=== PATIENT | female | born 1935 | race Caucasian/White ===

== ENCOUNTER 2019-07-30 12:06 | Inpatient (IN) ==
[2019-07-30 12:32] LABS: POC Blood Urea Nitrogen 34 mg/dl (8-23); POC CO2 25 mmol/L (22-30); POC Calcium, Ionized 1.13 mmol/L (1.16-1.32); POC Chloride 99 mmol/L (96-108); POC Creatinine 2.4 mg/dl (0.6-1.1); POC Glucose, Random 119 mg/dL (70-105); POC Sodium 132 mmol/L (133-145)
--- NOTE | 2019-07-30 12:32 | Emergency Department Note ---
Neuro HPI - General Chief Complaint: Stroke Symptoms Stated Complaint: Neuro defecit Time Seen by Provider: 07/30/19 12:26 Source: patient, family Mode of arrival: ambulatory Limitations: no limitations - History of Present Illness HPI Narrative: History is obtained from the who states that she woke up this morning with a severe left-sided headache. Since then she's had intermittent episodes of confusion, talking gibberish, not making much sense. The. Recent does not have a focal neurologic deficit i.e. weakness, but she still complaining of headache, no history of nausea, vomiting, denies chest pain, follows commands but she's not able to make much sense with any conversation or question. The. Patient is repeatedly mumbling incomprehensible words and sometimes word salad. - Related Data Home Medications: Home Medications Medication Instructions Recorded Confirmed acyclovir 5 % topical cream 1 applic TOPICAL QDAY PRN 4 Days g 02/18/15 07/30/19 calcium carbonate 500 mg calcium 500 mg PO BID tab 02/18/15 05/24/17 (1,250 mg) tablet cholecalciferol (vitamin D3) 400 400 unit PO BID cap 02/18/15 05/24/17 unit capsule coenzyme Q10 200 mg capsule 200 mg PO QDAY cap 02/18/15 05/24/17 conjugated estrogens 0.625 mg/gram 0.5 g VAGINAL QDAY PRN g 02/18/15 05/24/17 vaginal cream halobetasol propionate 0.05 % 1 applic TOPICAL QDAY PRN g 02/18/15 05/24/17 topical ointment oxygen-air delivery systems See Dose Instructions .ROUTE 02/18/15 05/24/17 .MEDSUPPLY folic acid 1 mg tablet 1 mg PO QDAY tab 05/18/15 05/24/17 Bisoprolol Fumarate 2.5 mg PO HS 07/30/19 07/30/19 Diltiazem HCl [Dilt-Xr] 360 mg PO QDAY 07/30/19 07/30/19 Spironolactone [Aldactone] 12.5 mg PO DAILY 07/30/19 07/30/19 predniSONE [Prednisone] 30 mg PO QAM 07/30/19 07/30/19 traMADol HCL [Ultram] 100 mg PO DAILY 07/30/19 07/30/19 Previous Rx's Medication Instructions Recorded ipratropium-albuterol 0.5 mg-3 3 ml INHALATION TID 30 Days #270 ml 08/19/15 mg(2.5 mg base)/3 mL nebulization soln Probiotic 3 billion cell capsule 3,000 mmu cells PO QDAY #10 cap NS 10/08/15 oxycodone-acetaminophen 5 mg-325 See Dose Instructions PO TID PRN 10/22/15 mg tablet 25 Days #150 tab albuterol sulfate 90 mcg/actuation 1 puff INHALATION QID #18 g 10/26/15 aerosol inhaler digoxin 125 mcg (0.125 mg) tablet 125 mcg PO QDAY 90 Days #90 tab 07/04/16 levothyroxine 75 mcg tablet 75 mcg PO QDAY 90 Days #90 tab 02/20/17 clobetasol 0.05 % topical cream 1 applic TOPICAL BID PRN #15 g 03/22/17 tramadol 100 mg tablet,extended 100 mg PO QDAY #30 tab 04/25/17 release 24 hr warfarin 1 mg tablet See Rx Instructions .ROUTE 06/14/17 .COMPLEX #180 tab oxyCODONE HCL [Oxycodone HCl] 5 mg PO Q6HP PRN #20 tab 06/07/19 Allergies/Adverse Reactions: Allergies Allergy/AdvReac Type Severity Reaction Status Date / Time hydrocodone Allergy Severe Itching Verified 07/30/19 12:10 Amoxicillin [From Augmentin] Allergy Unknown Other Verified 07/30/19 12:10 atorvastatin [From Lipitor] Allergy Unknown Other Verified 07/30/19 12:10 bupropion [From Wellbutrin] Allergy Unknown Other Verified 07/30/19 12:10 clavulanic acid Allergy Unknown Other Verified 07/30/19 12:10 [From Augmentin] nicotine [From Nicoderm CQ] Allergy Unknown Other Verified 07/30/19 12:10 NSAIDS (Non-Steroidal Allergy Unknown Other Verified 07/30/19 12:10 Anti-Inflamma piperacillin [From Zosyn] Allergy Unknown Hives Verified 07/30/19 12:10 rosuvastatin [From Crestor] Allergy Unknown Other Verified 07/30/19 12:10 Ofiuewr-Stu-Gth Reductase Allergy Unknown Unknown Verified 07/30/19 12:10 Inhibitor tazobactam [From Zosyn] Allergy Unknown Hives Verified 12/10/19 12:10 Review of Systems Review of Systems: According to the , there is no history of any fall or head trauma Limitations: ROS unobtainable due to patients medical condition Past Medical History - Past Medical History Medical history: Reports: arthritis, COPD, GERD, hypertension 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 Absent: nystagmus, periorbital swelling ENT: Present: normal exam, normal oropharynx, mucous membranes moist, TM's normal bilaterally Neck: Present: full ROM, trachea midline. Absent: tenderness, meningismus Chest: Present: normal inspection, symmetric chest wall rise Respiratory: Present: wheezes, decreased breath sounds Cardiovascular: Present: regular rate, normal heart sounds Abdominal: Present: soft, normal bowel sounds. Absent: tenderness Extremities: Present: normal inspection, full ROM. Absent: pretibial edema, joint swelling Back: Absent: CVA tenderness (R), CVA tenderness (L), vertebral tenderness Neurological: Present: alert. Absent: motor sensory deficit Psychiatric: Present: anxious Skin: Present: warm, dry, normal color Course - Reevaluation(s) Reevaluation #1: Speech is somewhat improved at this time. He still confused about her daughter's whereabouts, she occasionally answers questions appropriately, at other times her speech and her word selection is inappropriate. She cannot remember where her daughter lives. Denies headache at this time. Head CT not showing any acute intracranial hemorrhage, her white count is elevated, she was hypoxic several times in the room. She still audibly wheezy after one breathing treatment of. We will start her on Solu-Medrol, according to her . She still smokes 1 pack a day despite multiple surgeries for vascular disease. Reevaluation #2: Rectal temperature was 101.6. At this point, we will draw blood cultures, start her on antibiotics. The. She may have pneumonia as the source of confusion, head CT was negative for acute intracranial hemorrhage. She does have severe encephalomalacia. Reevaluation #3: Her symptoms did actually improve in the ED of. We did give her 20 mg IV of labetalol and her blood pressure was reasonable between 150 and 170 systolic, confusion was somewhat improving, however, notably when we checked a rectal temperature was 101.6. I spoke with Dr. Forbes, who recommended daily starting on antibiotics for pneumonia, also covering for possibility of meningitis. The. He does not have meningitis-like symptoms except for episode of confusion associated with fever. His may very well be from pneumonia, certainly she does have an infiltrate right perihilar region that would explain the fever and c ertainly in the setting of encephalomalacia as well as hypertension and fever, she could have confusion from that. Unlikely that she has meningitis. However, we will cover her for that. In the meantime. We'll discuss possibility of spinal tap with Dr. Burrell. I do not feel this to be undertaken at this time as her INR still high at 2.7. Dr. Forbes stated that this could be done tomorrow as well. Vital Signs Temperature 99.4 F H 07/30/19 12:06 Pulse Rate 110 H 07/30/19 12:06 Respiratory Rate 25 H 07/30/19 12:06 Blood Pressure 207/109 07/30/19 12:06 Pulse Oximetry (%) 93 07/30/19 12:06 Temperature 101.7 F H 07/30/19 14:36 Pulse Rate 82 07/30/19 14:16 Respiratory Rate 18 07/30/19 14:16 Blood Pressure 159/75 07/30/19 14:16 Pulse Oximetry (%) 94 07/30/19 14:16 Neuro Symptoms/Deficit - MDM Narrative Medical decision making narrative: Final diagnosis is #1. Pneumonia and #2. COPD exacerbation. Episode of conf usion associated with hypertension, malignant and encephalomalacia. - Lab Data Lab results reviewed: Yes I reviewed the patient's lab results. Result diagrams: 07/30/19 12:28 07/30/19 12:27 Lab Results 07/30/19 07/30/19 07/30/19 Range/Units 12:27 12:27 12:28 WBC 14.7 H (4.5-11.0) K/mcL RBC 4.55 (4.00-5.20) M/mcL Hgb 11.6 L (12.0-15.0) g/dL Hct 37.3 (36.0-48.0) % POC Hct 38.0 (36.0-48.0) % MCV 81.9 (80.0-100.0) fL MCH 25.4 L (26.0-34.0) pg MCHC 31.0 (31.0-36.0) g/dL RDW 19.4 H (11.5-14.5) % Plt Count 404 (140-440) K/mcL MPV 6.8 L (7.4-10.4) fL Gran % 70.9 (38.0-78.0) % Lymph % (Auto) 16.5 (15.5-49.0) % [place] % (Auto) 6.6 (1.0-12.0) % Eos % (Auto) 5.3 (0.0-7.0) % Baso % (Auto) 0.7 (0.0-2.0) % Gran # 10.4 H (1.8-8.0) K/mcL Lymph # (Auto) 2.4 (1.5-4.8) K/mcL [place] # (Auto) 1.0 H (0.1-0.9) K/mcL Eos # (Auto) 0.8 H (0.0-0.7) K/mcL Baso # (Auto) 0.1 (0.0-0.3) K/mcL POC PT (11.9-14.5) sec POC INR (0.9-1.2) APTT (20-37) sec POC Sodium 132 L (133-145) mmol/L Sodium 132 L (133-145) mmol/L POC Potassium 5.0 (3.3-5.1) mmol/L Potassium 5.1 (3.3-5.1) mmol/L POC Chloride 99 (96-108) mmol/L Chloride 97 (96-108) mmol/L Carbon Dioxide 23 (22-30) mmol/L POC Total CO2 25 (22-30) mmol/L Anion Gap 12.0 (8-16) POC BUN 34 H (8-23) mg/dl BUN 35 H (8-23) mg/dl Creatinine 2.2 H (0.6-1.1) mg/dl POC Creatinine 2.4 H (0.6-1.1) mg/dl GFR Calculation 20 Glucose 121 H (70-105) mg/dL POC Glucose 119 H (70-105) mg/dL Calcium 9.4 (8.6-10.4) mg/dl POC WB Ioniz Calcium 1.13 L (1.16-1.32) mmol/L Total Bilirubin 0.2 (0.0-1.0) mg/dL AST 38 H (0-37) U/l ALT 42 H (0-40) U/l Alkaline Phosphatase 163 H (39-117) U/L Troponin T (0-0.03) ng/ml C-Reactive Protein 1.1 H (0.0-0.8) mg/dl Total Protein 6.9 (5.9-8.4) gm/dL Albumin 4.0 (3.2-5.2) gm/dL Globulin 2.9 (2.2-3.7) gm/dL Albumin/Globulin Ratio 1.4 (1.0-2.3) 07/30/19 07/30/19 Range/Units 12:28 12:28 WBC (4.5-11.0) K/mcL RBC (4.00-5.20) M/mcL Hgb (12.0-15.0) g/dL Hct (36.0-48.0) % POC Hct (36.0-48.0) % MCV (80.0-100.0) fL MCH (26.0-34.0) pg MCHC (31.0-36.0) g/dL RDW (11.5-14.5) % Plt Count (140-440) K/mcL MPV (7.4-10.4) fL Gran % (38.0-78.0) % Lymph % (Auto) (15.5-49.0) % [place] % (Auto) (1.0-12.0) % Eos % (Auto) (0.0-7.0) % Baso % (Auto) (0.0-2.0) % Gran # (1.8-8.0) K/mcL Lymph # (Auto) (1.5-4.8) K/mcL [place] # (Auto) (0.1-0.9) K/mcL Eos # (Auto) (0.0-0.7) K/mcL Baso # (Auto) (0.0-0.3) K/mcL POC PT 30.5 H (11.9-14.5) sec POC INR 2.7 H (0.9-1.2) APTT 59 H (20-37) sec POC Sodium (133-145) mmol/L Sodium (133-145) mmol/L POC Potassium (3.3-5.1) mmol/L Potassium (3.3-5.1) mmol/L POC Chloride (96-108) mmol/L Chloride (96-108) mmol/L Carbon Dioxide (22-30) mmol/L POC Total CO2 (22-30) mmol/L Anion Gap (8-16) POC BUN (8-23) mg/dl BUN (8-23) mg/dl Creatinine (0.6-1.1) mg/dl POC Creatinine (0.6-1.1) mg/dl GFR Calculation Glucose (70-105) mg/dL POC Glucose (70-105) mg/dL Calcium (8.6-10.4) mg/dl POC WB Ioniz Calcium (1.16-1.32) mmol/L Total Bilirubin (0.0-1.0) mg/dL AST (0-37) U/l ALT (0-40) U/l Alkaline Phosphatase (39-117) U/L Troponin T < 0.01 (0-0.03) ng/ml C-Reactive Protein (0.0-0.8) mg/dl Total Protein (5.9-8.4) gm/dL Albumin (3.2-5.2) gm/dL Globulin (2.2-3.7) gm/dL Albumin/Globulin Ratio (1.0-2.3) - Radiology Data Radiology results reviewed: Yes I reviewed the patient's radiology results. Disposition Pt seen by FOOD AND BEVERAGE CONTROLLER/PA only: No Clinical Impression: Pneumonia Disposition: Xfer As Inpt ([facility]) Referrals: Raul Orozco MD [Primary Care Provider] -
--- NOTE | 2019-07-30 12:42 | Cat Scan Report ---
CLINICAL INFORMATION: Code stroke COMPARISON: Previous examination dated 07/25/2017 TECHNIQUE: Axial noncontrast-enhanced images through the brain. Sagittally and coronally reformatted images. FINDINGS: No acute intracranial hemorrhage. There is no subdural hematoma. No subarachnoid hemorrhage. No intra-axial hemorrhage. There is severe white matter abnormality within both cerebral hemispheres. Appearance is consistent with small vessel ischemic change in this 84-year-old patient. No localized mass effect. No midline shift. No acute or focal intra-axial abnormality. Brainstem and cerebellum are negative. Basilar cisterns are normal. No calvarial fracture. No lytic lesion there is soft tissue density within mastoid air cells consistent with inflammatory mastoiditis. No significant bone destruction. IMPRESSION: 1. Severe white matter abnormality consistent with small vessel ischemic change. No interval change 2. No acute intracranial hemorrhage 3. Mild mastoiditis The exam was performed using radiation dose optimization techniques including, but not limited to, automated exposure control, adjustment of the mA and/or kV according to patient size and use of iterative reconstruction technique. Interpreted and Authenticated by: Stephen Burrell 07/30/19
[2019-07-30 12:44] LABS: POC INR 2.7 (0.9-1.2); POC Pro Time 30.5 sec (11.9-14.5)
[2019-07-30] MEDS ORDERED: LACTATED RINGERS 1,000 ML IV SCH (12:45)
[2019-07-30] MEDS ORDERED: LABETALOL 5 MG/ML ML IV ONE (12:48)
[2019-07-30] MEDS ORDERED: IPRATROPIUM/ALBUTEROL 3 ML AMPUL.NEB NEB ONE (12:49)
[2019-07-30 13:00] LABS: Basophils # (Auto) 0.1 K/mcL (0.0-0.3); Basophils % (Auto) 0.7 % (0.0-2.0); Eosinophils # (Auto) 0.8 K/mcL (0.0-0.7); Eosinophils % (Auto) 5.3 % (0.0-7.0); Granulocytes % (Auto) 70.9 % (38.0-78.0); Hematocrit 37.3 % (36.0-48.0); Hemoglobin 11.6 g/dL (12.0-15.0); Lymphocytes # (Auto) 2.4 K/mcL (1.5-4.8); Lymphocytes % (Auto) 16.5 % (15.5-49.0); Mean Cell Volume 81.9 fL (80.0-100.0); Mean Platelet Volume 6.8 fL (7.4-10.4); Monocytes % (Auto) 6.6 % (1.0-12.0); Platelet Count 404 K/mcL (140-440); RBC 4.55 M/mcL (4.00-5.20); Red Cell Distribution Width 19.4 % (11.5-14.5); WBC 14.7 K/mcL (4.5-11.0)
[2019-07-30 13:18] LABS: ALT/SGPT 42 U/l (0-40); AST/SGOT 38 U/l (0-37); Albumin/Globulin Ratio 1.4 (1.0-2.3); Alkaline Phosphatase 163 U/L (39-117); Bilirubin,Total 0.2 mg/dL (0.0-1.0); Blood Urea Nitrogen 35 mg/dl (8-23); Calcium 9.4 mg/dl (8.6-10.4); Carbon Dioxide 23 mmol/L (22-30); Chloride 97 mmol/L (96-108); Globulin 2.9 gm/dL (2.2-3.7); Glomerular Filtration Rate 20; Glucose 121 mg/dL (70-105)
--- NOTE | 2019-07-30 13:26 | XRay Report ---
CLINICAL INFORMATION:Confusion. COPD TECHNIQUE: AP portable semiupright chest x-ray COMPARISON: Previous chest x-rays dated 01/20/2017, 12/07/2015, 10/06/2014 FINDINGS:Diaphragms are flattened consistent with COPD. Mild cardiomegaly. There is mild peribronchial thickening. There is thickening of the interlobular septa consistent with interstitial edema. No focal pulmonary parenchymal consolidation. No evidence for significant pleural effusion. IMPRESSION: 1. Mild cardiomegaly 2. Findings consistent with interstitial pulmonary edema 3. No focal infiltrate Interpreted and Authenticated by: Stephen Burrell 07/30/19
[2019-07-30] MEDS ORDERED: methylPREDNISolone SOD SUCC 125 MG/2 ML VIAL IV ONE (14:12)
[2019-07-30] MEDS ORDERED: cefTRIAXone 1 GM VIAL IV ONE (14:33)
[2019-07-30] MEDS ORDERED: ACETAMINOPHEN 325 MG TABLET PO ONE (14:33)
[2019-07-30] MEDS ORDERED: LEVOFLOXACIN 500 MG/100 ML BAG IV ONE (14:34)
[2019-07-30] MEDS ORDERED: IPRATROPIUM/ALBUTEROL 3 ML AMPUL.NEB NEB SCH (15:00)
[2019-07-30] MEDS ORDERED: ACYCLOVIR SODIUM 500 MG VIAL IV STA (15:28)
[2019-07-30] MEDS ORDERED: VANCOMYCIN 1,500 MG in 0.9 % SODIUM CHLORIDE 500 ML IV ONE (15:30)
--- NOTE | 2019-07-30 15:37 | Internal Med History&Physical ---
Medical - H&P: HPI Patient information: Note initiated : 07/30/19 at 3:33 pm Service Date, if different from initiated Date: [] Patient: Leah Hong a 84 y/o F admitted on for Neuro defecit. Chief Complaint: [] Chief complaint: Headache confusion weakness and shortness of breath History of present illness: Ms. 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 She also noted worsening confusion along with left-sided headache that started abruptly this morning. Symptoms persisted for a few hours and was associated with a fever of 101.8. She denies experiencing associated photophobia. She is hard of hearing. Most of the history was obtained from patient's . Initial work-up was consistent with acute pulmonary edema/chest infiltrates and sepsis with a white count 14.7 and creatinine 2.2. Hospitalist service was consulted in light of severe sepsis/acute renal failure and high probability encephalitis in the setting of fever and mental status change. LP could not performed due to elevated INR. Patient was empirically started on Rocephin/vancomycin/acyclovir given a history of herpes. At the time of my evaluation patient denies associated chest pain, diarrhea, dysuria or bloody stool. She endorses to weight loss. She is very hard of hearing and is extremely distressed sitting up on bed labored unable to talk in full sentences. Review of systems A 10 point review system was performed and is negative except for discussed above Medical - H&P: PMH Medical history: Impaired glucose tolerance (Chronic) Encounter for Health Maintenance Examination in Adult (Chronic) Bronchitis (Acute) TIA (transient ischemic attack) (Chronic 12/05/14) Tobacco use (Chronic) Discontinuation of tobacco 07/2012 with component of moderately severe COPD, transient O2 use, continues nebulizer; secondary erythrocytosis, improving and she was congratulated in this regard; recent chest stable as regards to pulmonary nodules. Plan to rescreen on a yearly basis. Pulmonary nodule (Acute) Recent chest stable. Plan to rescreen on a yearly basis. Immunization up to date and discontinued tobacco 07/2012. Psoriasis (Chronic) Ultravate cream. Peripheral vascular disease (Chronic) Endarterectomy, right and left in 2005; last [place] review in 05/2010. Updated carotid doppler in 2009; negative previous aortic US 08/2011; right graft occulusion, now relegated to chronic Coumadin anticoagulation. Paroxysmal supraventricular tachycardia (Chronic) Normal cardiolite 08/2009. Osteopenia (Acute) Bone density 07/2010 T-score -1.2 spine and hip -3.3 with osteopenia at the spine. Declines further rescreening. Osteoarthrosis (Acute) At the hip on bone density 07/2010 T-score at the spine -1.2 and hip -3.3. Declines further medication addition and rescreening. Hypothyroidism (Chronic) Initiation of replacement. Hyperlipidemia (Chronic) Currently on medication. Hepatitis B infection (Acute) Positive hep B surface antibody around 2009 with no previous immunization, negative C antibody. Fibrocystic disease of breast (Acute) Previous reduction mammoplasty in 1996; exam stable. Questionable nodule on chest CT on the left lateral breast. S/P complete hysterectomy. Erythrocytosis (Chronic) Secondary to COPD, improving. Dyspepsia (Chronic) Stable on Prilosec; biliary sludge on previous upper GI workup; currently stable and under observation. Depression (Chronic) Chronic depression with the addition of situational. Currently taking medication. Degenerative arthritis (Chronic) Multi-joint; analgesics Colon polyps (Acute) 08/25/2015-Two tubular adenomas-Dr Daniel Colonoscopy 08/2009 showing adenomatous polyps, on 5 year sequencing. COPD (chronic obstructive pulmonary disease) (Chronic) Moderately severe, transient use of O2, continues nebulizer. Carotid stenosis (Acute 12/01/14) Back pain (Chronic) Chronic back pain; analgesics. S/P lumbar diskectomy [id number]. Arterial embolism and thrombosis of lower extremity (Acute 09/05/13) Aortic sclerosis (Acute 05/16/14) Antritis (stomach) (Acute) Stable on Prilosec; biliary sludge on previous upper GI workup. Under observation. residential current use of anticoagulant therapy (Chronic 09/05/13) Surgical History History of reduction mammoplasty (Acute) 1996 History of oophorectomy (Acute) History of hysterectomy (Acute) Status post femoral-popliteal bypass surgery (Acute 05/23/14) History of endarterectomy (Acute 05/23/14) 05/23/14-admitted on 05/23/14 for a left femoral endarterectomy at [facility] Dr Hurley Right 10/2005 and left 08/2005. Left repeated 02/2006 after occuded graft on the right in 07/2006 and has been relegated to Coumadin anticoagulation. History of esophagogastroduodenoscopy (Acute 11/04/09) Through Dr. Pyle. Revealed antritis. History of colonoscopy (Acute 09/07/09) 08/25/2015-Two tubular adenomas-Dr Daniel Showed 2 tubular adenomatous polyps. 5 year sequencing History of breast biopsy (Acute) X2 History of back surgery (Acute) 2001 & 2002 - X2 lumbar discectomy History of appendectomy (Acute) Family History Uncle Malignant neoplasm of lung Uncle Lymphoma Had some type of lymphoma Social History household members: spouse housing: house marital status: occupational status: retired smoking status: Current every day smoker tobacco type: cigarettes alcohol intake frequency: a few times a week substance use type: does not use Medical - H&P: Meds Home Medications Medication Instructions Recorded Confirmed Type ipratropium-albuterol 0.5 mg-3 3 ml INHALATION TID 30 Days #270 ml 08/19/15 07/30/19 Rx mg(2.5 mg base)/3 mL nebulization soln albuterol sulfate 90 mcg/actuation 1 puff INHALATION QID #18 g 10/26/15 07/30/19 Rx aerosol inhaler digoxin 125 mcg (0.125 mg) tablet 125 mcg PO QDAY 90 Days #90 tab 07/04/16 07/30/19 Rx levothyroxine 75 mcg tablet 75 mcg PO QDAY 90 Days #90 tab 02/20/17 07/30/19 Rx warfarin 1 mg tablet See Rx Instructions .ROUTE 06/14/17 07/30/19 Rx .COMPLEX #180 tab Bisoprolol Fumarate 2.5 mg PO HS 07/30/19 07/30/19 History Diltiazem HCl [Dilt-Xr] 360 mg PO QDAY 07/30/19 07/30/19 History Irbesartan [Avapro] 300 mg PO DAILY 07/30/19 07/30/19 History Metoprolol Succinate [[place] 25 mg PO BID 07/30/19 07/30/19 History Sprinkle] Pravastatin [Pravachol] 40 mg PO HS 07/30/19 07/30/19 History Spironolactone [Aldactone] 12.5 mg PO DAILY 07/30/19 07/30/19 History Terazosin [Hytrin] 1 mg PO HS 07/30/19 07/30/19 History oxyCODONE HCL [Roxicodone] 5 mg PO Q6HP PRN 07/30/19 07/30/19 History traMADol HCL [Ultram] 100 mg PO DAILY 07/30/19 07/30/19 History Allergies Allergy/AdvReac Type Severity Reaction Status Date / Time hydrocodone Allergy Severe Itching Verified 07/30/19 12:10 Amoxicillin [From Augmentin] Allergy Unknown Other Verified 07/30/19 12:10 atorvastatin [From Lipitor] Allergy Unknown Other Verified 07/30/19 12:10 bupropion [From Wellbutrin] Allergy Unknown Other Verified 07/30/19 12:10 clavulanic acid Allergy Unknown Other Verified 07/30/19 12:10 [From Augmentin] nicotine [From Nicoderm CQ] Allergy Unknown Other Verified 07/30/19 12:10 NSAIDS (Non-Steroidal Allergy Unknown Other Verified 07/30/19 12:10 Anti-Inflamma piperacillin [From Zosyn] Allergy Unknown Hives Verified 07/30/19 12:10 rosuvastatin [From Crestor] Allergy Unknown Other Verified 07/30/19 12:10 Ecfxacd-Ibb-Coh Reductase Allergy Unknown Unknown Verified 07/30/19 12:10 Inhibitor tazobactam [From Zosyn] Allergy Unknown Hives Verified 07/30/19 12:10 Medical - H&P: Exam - Constitutional Vitals: Temp Pulse Resp BP Pulse Ox 101.7 F H 82 18 159/75 94 07/30/19 14:36 07/30/19 14:16 07/30/19 14:16 07/30/19 14:16 07/30/19 14:16 General appearance: moderate distress (Short of breath and anxious) Exam: Hard of hearing Responding to commands Head normocephalic Oral cavity dry No ear nose discharge Eye movement symmetrical Neck lymphadenopathy, depressed supraclavicular fossa Barrel chest, expiratory rhonchi,, diminished breath sounds bases Occasional irregular rhythm, ESM grade 1 Abdomen soft nontender Lower extremity no cyanosis clubbing, generalized xerosis, no joint swelling erythema Skin otherwise no suspicious lesion Psych anxious, lethargic and distressed but cooperative Neuro nonfocal Medical - H&P: Reslt - Labs CBC & Chem 7: 07/30/19 12:28 07/30/19 12:27 Labs: Short CBC 07/30/19 Range/Units 12:28 WBC 14.7 H (4.5-11.0) K/mcL Hgb 11.6 L (12.0-15.0) g/dL Hct 37.3 (36.0-48.0) % Plt Count 404 (140-440) K/mcL BMP 07/30/19 12:27 Sodium 132 L Potassium 5.1 Chloride 97 Carbon Dioxide 23 BUN 35 H Creatinine 2.2 H Glucose 121 H Calcium 9.4 Cardiac Enzymes 07/30/19 Range/Units 12:28 Troponin T < 0.01 (0-0.03) ng/ml Liver Function 07/30/19 Range/Units 12:27 Total Bilirubin 0.2 (0.0-1.0) mg/dL AST 38 H (0-37) U/l ALT 42 H (0-40) U/l Alkaline Phosphatase 163 H (39-117) U/L Albumin 4.0 (3.2-5.2) gm/dL Medical - H&P: A/P (1) Sepsis with acute hypoxic respiratory failure Current visit: Yes Status: Acute * Acute respiratory failure with hypoxia secondary pulmonary edema/hypertensive crisis and suspected pneumonia. Continue antibiotic coverage/supplemental oxygen/noninvasive mechanical ventilation as indicated. * Acute pulmonary edema secondary to hypertensive crisis, * Hypertensive crisis-aggressive antihypertensives * Acute change mental status rule out encephalitis. Start patient empirically on Rocephin/vancomycin acyclovir. Lumbar puncture /CSF studies. CT head no acute event. * Acute renal failure-baseline creatinine 1 current creatinine 2.2 abdominal ultrasound/UA/crystalloids. Likely sepsis endorgan dysfunction. Avoid nephrotoxins * COPD exacerbation continue steroids/bronchodilators and supplemental oxygen. * Elevated LFTs secondary to sepsis. * Severe protein calorie malnutrition aggressive dietary intervention/dietitian consult * Anticoagulation on Coumadin * Tobacco dependence continue nicotine patch * Full code * Prophylaxis currently on anticoagulation Plan * Inpatient ICU admission * Noninvasive mechanical ventilation if worsening hypoxia * Blood pressure control * COPD exacerbation management per guidelines * Sepsis management per guidelines * Lumbar puncture once INR 1.5/empiric encephalitis treatment on acyclovir/vancomycin Rocephin * Monitor renal function * PT OT/nutrition support * Anticoagulation on Coumadin * Patient critically ill with [place] 2 score 18 signify high risk mortality. In excess of 70 minutes spent on history and physical Additional 35 minutes critical care time spent on management of hypoxic resp iratory failure/hypertensive crisis/sepsis management Medical - H&P: Qual - Stroke Onset of Symptoms Date: 07/30/19 Onset of Symptoms Time: 08:00 Symptom Onset Unknown: No
[2019-07-30] MEDS ORDERED: SODIUM CHLORIDE 0.9% IV ONE (16:00)
[2019-07-30] MEDS ORDERED: ACYCLOVIR SODIUM IV ONE (16:00)
[2019-07-30 16:04] LABS: Appearance,Urine CLEAR; Bacteria,Urine 0 /hpf (0); Bilirubin,Urine NEG (NEG); Color,Urine STRAW; Culture Indicated,Urine NO; Glucose,Urine (UA) NEGATIVE (NEG); Ketones,Urine NEG (NEG); Leukocyte Esterase,Urine NEG /uL (NEG); Mucus,Urine FEW /hpf (0); Nitrate,Urine NEG (NEG); Protein,Urine 100 mg/dL (NEG); Specific Gravity,Urine 1.009 (1.000-1.035); Urine Blood 0.03 mg/dL (<0.03); Urine RBC 5 /hpf (0-1); Urine Squamous Epithelial Cell 1 /hpf (0-4); Urine WBC 1 /hpf (0-4); Urobilinogen,Urine NEG (NEG)
[2019-07-30] MEDS ORDERED: ACETAMINOPHEN 650 MG/65 ML BOTTLE IV PRN (18:13)
[2019-07-30] MEDS ORDERED: ACETAMINOPHEN 325 MG TABLET PO PRN (18:13)
[2019-07-30] MEDS ORDERED: ONDANSETRON 4 MG ODT TABLET SL PRN (18:13)
[2019-07-30] MEDS ORDERED: VANCOMYCIN PER PHARMACY IV SCH (18:13)
[2019-07-30] MEDS ORDERED: POLYETHYLENE GLYCOL 3350 17 GM PACKET PO PRN (18:13)
[2019-07-30] MEDS ORDERED: MAGNESIUM HYDROXIDE 30 ML ORAL.SUSP PO PRN (18:13)
[2019-07-30] MEDS ORDERED: MAGNESIUM SULFATE 2 GM/50 ML BAG IV PRN (18:13)
[2019-07-30] MEDS ORDERED: POTASSIUM CHLORIDE 20 MEQ PACKET PO PRN (18:13)
[2019-07-30] MEDS ORDERED: HYDROcodone/APAP 5/325MG TABLET PO PRN (18:13)
[2019-07-30] MEDS ORDERED: BISACODYL 10 MG SUPP.RECT PR PRN (18:13)
[2019-07-30] MEDS ORDERED: POTASSIUM CHLORIDE 40 MEQ in DEXTROSE 5% IN WATER 500 ML IV PRN (18:13)
[2019-07-30] MEDS ORDERED: ONDANSETRON 4 MG/2 ML VIAL IV PRN (18:13)
[2019-07-30] MEDS ORDERED: METOPROLOL TARTRATE 5 MG/5 ML VIAL IV PRN (18:13)
[2019-07-30] MEDS: 0.9 % SODIUM CHLORIDE 1,000 ML IV SCH (18:24)
[2019-07-30] MEDS: IPRATROPIUM/ALBUTEROL 3 ML AMPUL.NEB NEB SCH ×2 (19:35→23:03)
[2019-07-30] MEDS: BUDESONIDE 0.5 MG/2 ML AMPUL.NEB NEB SCH (19:35)
--- NOTE | 2019-07-30 19:59 | Ultrasound Report ---
CLINICAL INFORMATION: Renal failure TECHNIQUE: Grayscale and color flow Doppler spectral imaging COMPARISON: Previous CT scan dated 06/07/2019 FINDINGS: Right kidney measures 9.9 x 4.9 x 5.9 cm. Left kidney measures 12.2 x 6.0 x 6.0 cm. There are multiple large cysts. Findings may be due to adult polycystic kidney disease. Appearance is unchanged since 06/07/2019. Largest cyst on the right is at the upper pole and measures 7.5 cm. Largest cyst in the left is midpole and measures 8.2 cm. No solid mass. No hydronephrosis. Renal cortex appears echogenic and thinned bilaterally. No detectable calculi. IMPRESSION: 1. Multiple renal cysts bilaterally 2. No hydronephrosis 3. Renal cortex appears somewhat thinned bilaterally. Renal cortex is echogenic consistent with medical renal disease Interpreted and Authenticated by: Stephen Burrell 07/30/19
[2019-07-30] MEDS ORDERED: ACYCLOVIR SODIUM 500 MG VIAL IV SCH (22:00)
[2019-07-30] MEDS: SENNOSIDES/DOCUSATE SODIUM 1 TAB TABLET PO SCH (22:14)
[2019-07-30] MEDS: DOCUSATE SODIUM 100 MG CAPSULE PO SCH (22:14)
[2019-07-30] MEDS: BISOPROLOL 5 MG TABLET PO SCH (22:15)
[2019-07-30] MEDS: 0.9 % SODIUM CHLORIDE 10 ML SYRINGE IV SCH (22:15)
[2019-07-30] MEDS: CYANOCOBALAMIN (VITAMIN B-12) 500 MCG TABLET PO SCH (22:15)
[2019-07-30] MEDS: DEXTROSE 5% IV SCH (22:20)
[2019-07-30] MEDS: methylPREDNISolone SOD SUCC 125 MG/2 ML VIAL IV SCH (22:20)
[2019-07-30] MEDS: ACYCLOVIR SODIUM IV SCH (22:20)
[2019-07-30] MEDS: WATER IV SCH (22:20)
[2019-07-31] MEDS: IPRATROPIUM/ALBUTEROL 3 ML AMPUL.NEB NEB SCH ×2 (03:45→07:04)
[2019-07-31] MEDS: 0.9 % SODIUM CHLORIDE 10 ML SYRINGE IV SCH ×3 (04:36→22:39)
[2019-07-31 05:41] LABS: Hematocrit 33.6 % (36.0-48.0); Hemoglobin 10.7 g/dL (12.0-15.0); Mean Cell Volume 82.4 fL (80.0-100.0); Mean Corpuscular HGB Conc 31.9 g/dL (31.0-36.0); Mean Platelet Volume 7.1 fL (7.4-10.4); Platelet Count 326 K/mcL (140-440); RBC 4.08 M/mcL (4.00-5.20); Red Cell Distribution Width 19.5 % (11.5-14.5); WBC 7.2 K/mcL (4.5-11.0)
[2019-07-31 06:36] LABS: ALT/SGPT 30 U/l (0-40); AST/SGOT 19 U/l (0-37); Albumin 3.2 gm/dL (3.2-5.2); Albumin/Globulin Ratio 1.4 (1.0-2.3); Alkaline Phosphatase 128 U/L (39-117); Bilirubin,Direct < 0.2 mg/dL (0.0-0.3); Bilirubin,Total 0.2 mg/dL (0.0-1.0); Blood Urea Nitrogen 38 mg/dl (8-23); Calcium 8.9 mg/dl (8.6-10.4); Carbon Dioxide 21 mmol/L (22-30); Chloride 99 mmol/L (96-108); Globulin 2.3 gm/dL (2.2-3.7); Glomerular Filtration Rate 20; Glucose 167 mg/dL (70-105); Lactate Dehydrogenase 191 U/L (94-250); Triglycerides 75 mg/dl (<150); Uric Acid 6.9 mg/dL (2.5-8.0)
[2019-07-31] MEDS: ACYCLOVIR SODIUM IV SCH (06:58)
[2019-07-31] MEDS: WATER IV SCH (06:58)
[2019-07-31] MEDS: DEXTROSE 5% IV SCH (06:58)
[2019-07-31] MEDS: BUDESONIDE 0.5 MG/2 ML AMPUL.NEB NEB SCH (07:05)
[2019-07-31 08:33] LABS: Anisocytosis 1+ (NONE SEEN); Eosinophils % (Manual) 1 % (0-7); Lymphocytes % 5 % (15-49); Platelet Estimate NORMAL (NORMAL); RBC Morphology ABNORM (NORMAL); Segmented Neutrophils % 94 % (38-78)
[2019-07-31] MEDS: DILTIAZEM 180 MG CAP.XL.24H PO SCH (09:24)
[2019-07-31] MEDS: CYANOCOBALAMIN (VITAMIN B-12) 500 MCG TABLET PO SCH ×2 (09:24→20:44)
[2019-07-31] MEDS: DOCUSATE SODIUM 100 MG CAPSULE PO SCH ×2 (09:25→20:45)
[2019-07-31] MEDS: SPIRONOLACTONE 25 MG TABLET PO SCH (09:25)
[2019-07-31] MEDS: MULTIVIT,THER IRON,CA,FA & MIN 1 TABLET PO SCH (09:25)
[2019-07-31] MEDS: LEVOTHYROXINE 75 MCG TABLET PO SCH (09:26)
[2019-07-31] MEDS: methylPREDNISolone SOD SUCC 125 MG/2 ML VIAL IV SCH ×2 (09:26→20:44)
[2019-07-31] MEDS: cefTRIAXone 2 GM in DEXTROSE 5% IN WATER 50 ML IV SCH (09:29)
[2019-07-31] MEDS: THIAMINE 100 MG in 0.9 % SODIUM CHLORIDE 50 ML IV SCH (09:29)
[2019-07-31 11:12] LABS: INR 2.9 (0.9-1.1); Prothrombin Time 29.9 sec (11.9-14.5)
--- NOTE | 2019-07-31 13:30 | Internal Med Progress Note ---
Medical - PN: Subj Patient information: Note initiated : 07/31/19 at 1:28 pm Service Date, if different from initiated Date: [] Patient: Leah Hong a 84 y/o F admitted on 07/30/19 for Neuro defecit. Chief Complaint: [] Interval history: Ms. 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 She also noted worsening confusion along with left-sided headache that started abruptly this morning. Symptoms persisted for a few hours and was associated with a fever of 101.8. She denies experiencing associated photophobia. She is hard of hearing. Most of the history was obtained from patient's . Initial work-up was consistent with acute pulmonary edema/chest infiltrates and sepsis with a white count 14.7 and creatinine 2.2. Hospitalist service was consulted in light of severe sepsis/acute renal failure and high probability encephalitis in the setting of fever and mental status change. LP could not performed due to elevated INR. Patient was empirically started on Rocephin/vancomycin/acyclovir given a history of herpes. At the time of my evaluation patient denies associated chest pain, diarrhea, dysuria or bloody stool. She endorses to weight loss. She is very hard of hearing and is extremely distressed sitting up on bed labored unable to talk in full sentences. 07/31-patient seen in room. Feeling a lot better. Improved white count down to 7000. Potassium 5.4 creatinine 2.2. Improved blood pressure control. Imp roving hypoxia. Mental status much improved. Family members at bedside. Case discussed with patient's daughter Casimiro and other family members. Continue close monitoring. - Constitutional Vitals: Vital Signs Temp Pulse Resp BP Pulse Ox 97.5 F 66 24 H 167/78 97 07/31/19 12:01 07/31/19 11:01 07/31/19 13:05 07/31/19 12:01 07/31/19 11:01 Period Temp Pulse Resp BP Sys/Newman Pulse Ox Last 24 Hr 97.1 F-101.7 F 62-103 14-36 131-189/59-97 86-100 Intake and Output 07/30/19 07/31/1907/31/19 21:59 05:59 13:59 Intake Total 900 100 100 Output Total 515 415 Balance 385 -315 100 Weight 104 lb 11.2 oz 104 lb 11.2 oz Patient Weight 08/01/19 05:59 Weight 104 lb 11.2 oz Intake & Output: Intake & Output 07/30/19 07/31/19 07/31/19 21:59 05:59 13:59 Intake Total 900 100 100 Output Total 515 415 Balance 385 -315 100 Weight 104 lb 11.2 oz 104 lb 11.2 oz Intake: IV 900 100 100 Zovirax 400 mg In Sodium 100 Chloride 0.9% 100 ml @ 100 mls/ hr IV ONCE ONE Rx#:[id number] Zovirax 400 mg In Dextrose 5% 100 100 in Water 100 ml @ 100 mls/hr IV Q8H [facility] Rx#:[id number] Lactated Ringers 1,000 ml @ 150 200 mls/hr IV .Q6H40M [facility] Rx#: [id number] Vancomycin 1,500 mg In Sodium 500 Chloride 0.9% 500 ml @ 333.3 mls/hr IV ONCE ONE Rx#: [id number] Output: Urine Catheter Amount 515 415 Other: Meal Lunch Percent of Meal Consumed 50% Feeding Ability Independent Urine Appearance Clear Uretheral (Fitzgerald) Clear Clear Urine Color Pale Pale Uretheral (Fitzgerald) Bright Yellow Bright Yellow Urine Odor Normal Uretheral (Fitzgerald) Normal Normal Stool Size Small Stool Color Brown Stool Consistency Soft Dry and Hard General appearance: no acute distress Exam: Improved shortness of breath Much improved anxiety No telemetry events Nondistended abdomen Alert and responding to commands Medical - PN: Obj Da - Labs CBC & Chem 7: 07/31/19 03:30 07/31/19 03:30 Labs: Abnormal Lab Results 07/31/19 07/31/19 07/31/19 10:11 03:30 03:30 WBC Hgb 10.7 L Hct 33.6 L MCH RDW 19.5 H MPV 7.1 L Gran # [place] # (Auto) Eos # (Auto) Seg Neutrophils % 94 H Lymphocytes % 5 L RBC Morphology Abnorm A Anisocytosis 1+ A POC PT PT 29.9 H POC INR INR 2.9 H APTT POC Sodium Sodium Potassium 5.4 H Carbon Dioxide 21 L POC BUN BUN 38 H Creatinine 2.2 H POC Creatinine Glucose 167 H POC Glucose POC WB Ioniz Calcium Phosphorus 6.0 H* AST ALT Alkaline Phosphatase 128 H C-Reactive Protein Total Protein 5.5 L Urine Protein Urine Occult Blood Urine RBC 07/30/19 07/30/19 07/30/19 15:10 12:28 12:28 WBC 14.7 H Hgb 11.6 L Hct MCH 25.4 L RDW 19.4 H MPV 6.8 L Gran # 10.4 H [place] # (Auto) 1.0 H Eos # (Auto) 0.8 H Seg Neutrophils % Lymphocytes % RBC Morphology Anisocytosis POC PT 30.5 H PT POC INR 2.7 H INR APTT 59 H POC Sodium Sodium Potassium Carbon Dioxide POC BUN BUN Creatinine POC Creatinine Glucose POC Glucose POC WB Ioniz Calcium Phosphorus AST ALT Alkaline Phosphatase C-Reactive Protein Total Protein Urine Protein 100 A Urine Occult Blood 0.03 A Urine RBC 5 H 07/30/19 07/30/19 12:27 12:27 WBC Hgb Hct MCH RDW MPV Gran # [place] # (Auto) Eos # (Auto) Seg Neutrophils % Lymphocytes % RBC Morphology Anisocytosis POC PT PT POC INR INR APTT POC Sodium 132 L Sodium 132 L Potassium Carbon Dioxide POC BUN 34 H BUN 35 H Creatinine 2.2 H POC Creatinine 2.4 H Glucose 121 H POC Glucose 119 H POC WB Ioniz Calcium 1.13 L Phosphorus AST 38 H ALT 42 H Alkaline Phosphatase 163 H C-Reactive Protein 1.1 H Total Protein Urine Protein Urine Occult Blood Urine RBC Meds: Medications Acetaminophen (Tylenol) 650 mg PO Q4-6HP PRN; Protocol PRN Reason: Per Pain Protocol/Fever > 101 Hydrocodone Bitart/Acetaminophen ([place] 5/325mg) 0 tab PO Q4HP PRN; Protocol PRN Reason: Per Pain Protocol Albuterol/Ipratropium (Duoneb) 3 ml NEB Q4HP PRN PRN Reason: Shortness Of Breath Or Wheezing Bisacodyl (Dulcolax) 10 mg CO Q2-3DAYS PRN PRN Reason: Constipation Bisoprolol Fumarate (Zebeta) 2.5 mg PO HS [facility] Last Admin: 07/30/19 22:15 Dose: Not Given Documented by: Cyanocobalamin (Vitamin B-12) 1,000 mcg PO BID [facility] Stop: 08/04/19 09:01 Last Admin: 07/31/19 09:24 Dose: 1,000 mcg Documented by: Digoxin (Lanoxin) 125 mcg PO DAILY@1400 [facility] Diltiazem HCl (Cardizem Cd) 360 mg PO QDAY [facility] Last Admin: 07/31/19 09:24 Dose: 360 mg Documented by: Docusate Sodium (Colace) 100 mg PO BID [facility] Last Admin: 07/31/19 09:25 Dose: 100 mg Documented by: Hydralazine HCl (Apresoline) 10 mg IV Q4-6HP PRN PRN Reason: Hypertension Sodium Chloride (Sodium Chloride 0.9%) 1,000 mls @ 50 mls/hr IV .Q20H [facility] Stop: 08/02/19 06:12 Last Admin: 07/30/19 18:24 Dose: 50 mls/hr Documented by: Acetaminophen (Ofirmev) 650 mg in 65 mls @ 130 mls/hr IV Q6HP PRN; Protocol PRN Reason: Per Pain Protocol/Fever > 101 Potassium Chloride 40 meq/ (Dextrose) 520 mls @ 130 mls/hr IV UD PRN PRN Reason: K+ = or < 3.5 Magnesium Sulfate (Magnesium Sulfate) 2 gm in 50 mls @ 50 mls/hr IV UD PRN PRN Reason: MG = or < 1.7 Ceftriaxone Sodium 2 gm/ (Dextrose) 50 mls @ 100 mls/hr IV Q24H [facility]; Protocol Last Admin: 07/31/19 09:29 Dose: 100 mls/hr Documented by: Thiamine HCl 100 mg/ Sodium (Chloride) 51 mls @ 50 mls/hr IV DAILY [facility] Stop: 08/02/19 10:02 Last Admin: 07/31/19 09:29 Dose: 50 mls/hr Documented by: Vancomycin HCl 1,000 mg/ (Sodium Chloride) 250 mls @ 250 mls/hr IV Q24H [facility] Iron Carb/Multivit/Hydropulper Operator/Folic Acid (Multivitamin W/Minerals) 1 tab PO DAILY [facility] Last Admin: 07/31/19 09:25 Dose: 1 tab Documented by: Levothyroxine Sodium (Synthroid) 75 mcg PO QAMAC [facility] Last Admin: 07/31/19 09:26 Dose: 75 mcg Documented by: Magnesium Hydroxide (Milk Of Magnesia) 30 ml PO HSP PRN PRN Reason: Constipation Melatonin (Melatonin 3mg Tablet) 3 mg PO HSP PRN PRN Reason: Insomnia Methylprednisolone Sodium Succinate (Solu-Medrol) 60 mg IV Q12 [facility] Last Admin: 07/31/19 09:26 Dose: 60 mg Documented by: Metoprolol Tartrate (Lopressor) 5 mg IV Q5M PRN PRN Reason: Heart Rate > 140 bpm Ondansetron HCl (Zofran Odt) 4 mg SL Q4-6HP PRN; Protocol PRN Reason: Nausea And Vomiting Ondansetron HCl (Zofran) 4 mg IV Q4-6HP PRN; Protocol PRN Reason: Nausea And Vomiting Polyethylene Glycol (Miralax) 17 gm PO DAILYP PRN PRN Reason: Constipation Potassium Chloride (Klor-Con) 40 meq PO DAILYP PRN PRN Reason: K+ < 3.5 Senna/Docusate Sodium (Senna Plus Tablet) 1 tab PO HS [facility] Last Admin: 07/30/19 22:14 Dose: Not Given Documented by: Sodium Chloride (Saline Flush) 10 ml IV Q8 [facility] Last Admin: 07/31/19 04:36 Dose: 10 ml Documented by: Spironolactone (Aldactone) 12.5 mg PO DAILY [facility] Last Admin: 07/31/19 09:25 Dose: 12.5 mg Documented by: Vancomycin HCl (Vancomycin Per Pharmacy) 1 order IV [facility]; Protocol Warfarin Sodium (Coumadin Per Pharmacy) 1 order PO UD [facility] Warfarin Sodium (Coumadin) 1 mg PO ONCE@1400 [facility] Stop: 07/31/19 14:01 Medical - PN: A/P - Time Spent With Patient Total time spent is greater than 50% in coordination of care (as documented) at patient's floor/unit and/or counseling patient: 25 - 35 minutes (1) Sepsis with acute hypoxic respiratory failure Status: Acute Assessment and plan: * Acute respiratory failure with hypoxia secondary pulmonary edema/hypertensive crisis and suspected pneumonia. Clinically improving. * Acute pulmonary edema secondary to hypertensive crisis, clinically improved * Acute change mental status- Back at baseline. DC acyclovir. Likely secondary to sepsis * Acute renal failure-creatinine baseline 1 currently at 2.2 renal ultrasounds negative. DC acyclovir. Continue monitor renal function. * COPD exacerbation continue steroids/bronchodilators and supplemental oxygen. * Elevated LFTs secondary to sepsis. Continue monitoring * Severe protein calorie malnutrition aggressive dietary intervention/dietitian consult * Anticoagulation on Coumadin. INR 2.9 * Tobacco dependence continue nicotine patch * Full code * Prophylaxis currently on anticoagulation Plan * Continue antibiotics/COPD management per guidelines * Optimize blood pressure management * Sepsis management per guidelines * DC acyclovir * Continue monitor renal function * PT OT/nutrition support * Anticoagulation on Coumadin * Discharge planning per case management Current Visit: Yes Medical - PN: Qual - Stroke Onset of Symptoms Date: 07/30/19 Onset of Symptoms Time: 08:00 Symptom Onset Unknown: No - VTE Deep Vein Thrombosis/Pulmonary Embolism Present on Admission: No
[2019-07-31] MEDS: 0.9 % SODIUM CHLORIDE 1,000 ML IV SCH (13:51)
[2019-07-31] MEDS: DIGOXIN 125 MCG TABLET PO SCH (13:58)
[2019-07-31] MEDS ORDERED: WARFARIN 1 MG TABLET PO ONE (14:00)
[2019-07-31] MEDS: SENNOSIDES/DOCUSATE SODIUM 1 TAB TABLET PO SCH (20:44)
[2019-07-31] MEDS: BISOPROLOL 5 MG TABLET PO SCH (20:45)
[2019-08-01] MEDS: hydrALAZINE 20 MG/ML VIAL IV PRN (01:57)
[2019-08-01] MEDS: IPRATROPIUM/ALBUTEROL 3 ML AMPUL.NEB NEB PRN ×2 (01:57→22:48)
[2019-08-01] MEDS: MELATONIN 3 MG TABLET PO PRN (02:07)
[2019-08-01 06:39] LABS: Hematocrit 29.3 % (36.0-48.0); Hemoglobin 9.3 g/dL (12.0-15.0); Mean Cell Volume 81.6 fL (80.0-100.0); Mean Corpuscular HGB Conc 31.6 g/dL (31.0-36.0); Platelet Count 355 K/mcL (140-440); RBC 3.59 M/mcL (4.00-5.20); Red Cell Distribution Width 18.6 % (11.5-14.5); WBC 12.7 K/mcL (4.5-11.0)
[2019-08-01 07:03] LABS: Prothrombin Time 38.2 sec (11.9-14.5)
[2019-08-01 07:22] LABS: ALT/SGPT 23 U/l (0-40); AST/SGOT 16 U/l (0-37); Albumin 3.1 gm/dL (3.2-5.2); Albumin/Globulin Ratio 1.4 (1.0-2.3); Alkaline Phosphatase 103 U/L (39-117); Bilirubin,Direct < 0.2 mg/dL (0.0-0.3); Bilirubin,Total < 0.2 mg/dL (0.0-1.0); Blood Urea Nitrogen 47 mg/dl (8-23); Calcium 8.6 mg/dl (8.6-10.4); Carbon Dioxide 21 mmol/L (22-30); Chloride 101 mmol/L (96-108); Globulin 2.2 gm/dL (2.2-3.7); Glomerular Filtration Rate 17; Glucose 166 mg/dL (70-105); Lactate Dehydrogenase 207 U/L (94-250); Phosphorous 6.5 mg/dL (2.7-4.5); Triglycerides 112 mg/dl (<150)
[2019-08-01] MEDS: 0.9 % SODIUM CHLORIDE 1,000 ML IV SCH (08:39)
[2019-08-01] MEDS ORDERED: VANCOMYCIN 1,000 MG in 0.9 % SODIUM CHLORIDE 250 ML IV SCH (09:00)
[2019-08-01 09:35] LABS: Anisocytosis 1+ (NONE SEEN); Hypochromasia 1+ (NONE SEEN); Lymphocytes % 4 % (15-49); Microcytosis FEW (NONE SEEN); Platelet Estimate NORMAL (NORMAL); RBC Morphology ABNORM (NORMAL); Segmented Neutrophils % 96 % (38-78)
[2019-08-01] MEDS: DILTIAZEM 180 MG CAP.XL.24H PO SCH (09:35)
[2019-08-01] MEDS: SPIRONOLACTONE 25 MG TABLET PO SCH (09:35)
[2019-08-01] MEDS: CYANOCOBALAMIN (VITAMIN B-12) 500 MCG TABLET PO SCH ×2 (09:35→21:47)
[2019-08-01] MEDS: MULTIVIT,THER IRON,CA,FA & MIN 1 TABLET PO SCH (09:35)
[2019-08-01] MEDS: LEVOTHYROXINE 75 MCG TABLET PO SCH (09:36)
[2019-08-01] MEDS: methylPREDNISolone SOD SUCC 125 MG/2 ML VIAL IV SCH ×2 (09:36→21:48)
[2019-08-01] MEDS: THIAMINE 100 MG in 0.9 % SODIUM CHLORIDE 50 ML IV SCH (09:36)
[2019-08-01] MEDS: DOCUSATE SODIUM 100 MG CAPSULE PO SCH ×2 (09:40→21:45)
[2019-08-01] MEDS: cefTRIAXone 2 GM in DEXTROSE 5% IN WATER 50 ML IV SCH (09:40)
[2019-08-01] MEDS: 0.9 % SODIUM CHLORIDE 10 ML SYRINGE IV SCH ×3 (09:41→21:49)
[2019-08-01] MEDS ORDERED: oxyCODONE HCL 5 MG TABLET PO PRN (13:25)
--- NOTE | 2019-08-01 13:26 | Internal Med Progress Note ---
Medical - PN: Subj Patient information: Note initiated : 08/01/19 at 1:23 pm Service Date, if different from initiated Date: [] Patient: Leah Hong a 84 y/o F admitted on 07/30/19 for Neuro defecit. Chief Complaint: [] Interval history: Ms. 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 She also noted worsening confusion along with left-sided headache that started abruptly this morning. Symptoms persisted for a few hours and was associated with a fever of 101.8. She denies experiencing associated photophobia. She is hard of hearing. Most of the history was obtained from patient's . Initial work-up was consistent with acute pulmonary edema/chest infiltrates and sepsis with a white count 14.7 and creatinine 2.2. Hospitalist service was consulted in light of severe sepsis/acute renal failure and high probability encephalitis in the setting of fever and mental status change. LP could not performed due to elevated INR. Patient was empirically started on Rocephin/vancomycin/acyclovir given a history of herpes. At the time of my evaluation patient denies associated chest pain, diarrhea, dysuria or bloody stool. She endorses to weight loss. She is very hard of hearing and is extremely distressed sitting up on bed labored unable to talk in full sentences. 07/31-patient seen in room. Feeling a lot better. Improved white count down to 7000. Potassium 5.4 creatinine 2.2. Improved blood pressure control. Imp roving hypoxia. Mental status much improved. Family members at bedside. Case discussed with patient's daughter Casimiro and other family members. Continue close monitoring. 08/01-patient clinically improving however worsening white count of 12.7. Hemoglobin 9.3. INR 4. Patient complains of intermittent green and red spots in visual field. CT shows extensive ischemic past microvascular changes throughout the white matter. INR therapeutic. Potassium down from 5.4-5.1. Creatinine up from 2.2->2.6. If deteriorating renal function will consult nephrology. Blood pressure 140s to 160s systolic, start home medications except for ARB. Hydralazine 10 3 times daily. - Constitutional Vitals: Vital Signs Temp Pulse Resp BP Pulse Ox 97.8 F 76 18 161/66 98 08/01/19 12:01 08/01/19 10:03 08/01/19 12:10 08/01/19 12:01 08/01/19 10:03 Period Temp Pulse Resp BP Sys/Newman Pulse Ox Last 24 Hr 97.8 F-98.1 F 58-87 14-30 130-184/56-99 91-99 Intake and Output 07/31/19 08/01/19 08/01/19 21:59 05:59 13:59 Intake Total 150 1241 Output Total 475 285 290 Balance -325 -285 951 Weight 104 lb 14.4 oz Intake & Output: Intake & Output 07/31/19 08/01/19 08/01/19 21:59 05:59 13:59 Intake Total 150 1241 Output Total 475 285 290 Balance -325 -285 951 Weight 104 lb 14.4 oz Intake: IV 1041 Sodium Chloride 0.9% 1,000 ml @ 940 50 mls/hr IV .Q20H [facility] Rx#: [id number] Vitamin B1 100 mg In Sodium 51 Chloride 0.9% 50 ml @ 50 mls/hr IV DAILY [facility] Rx#:[id number] Rocephin 2 gm In Dextrose 5% in 50 Water 50 ml @ 100 mls/hr IV Q24H [facility] Rx#:[id number] Oral 150 200 Output: Urine Catheter Amount 475 285 290 Other: Meal Lunch Percent of Meal Consumed 25% Urine Appearance Clear Clear Uretheral ([place]) Clear Sediment Urine Color Pale Uretheral ([place]) Bright Yellow Urine Odor Uretheral ([place]gerald) Normal Stool Size Small Stool Color Brown Stool Consistency Loose General appearance: no acute distress Exam: Alert oriented Sitting on chair Daughter at bedside No anxiety On 3 L oxygenr Medical - PN: Obj Da - Labs CBC & Chem 7: 08/01/19 03:40 08/01/19 03:40 Labs: Abnormal Lab Results 08/01/19 08/01/19 08/01/19 03:40 03:40 03:40 WBC 12.7 H RBC 3.59 L Hgb 9.3 L Hct 29.3 L MCH 25.8 L RDW 18.6 H MPV 7.0 L Gran # [place] # (Auto) Eos # (Auto) Seg Neutrophils % 96 H Lymphocytes % 4 L RBC Morphology Abnorm A Hypochromasia 1+ A Anisocytosis 1+ A Microcytosis Few A POC PT PT 38.2 H POC INR INR 4.0 H APTT POC Sodium Sodium Potassium Carbon Dioxide 21 L POC BUN BUN 47 H Creatinine 2.6 H POC Creatinine Glucose 166 H POC Glucose POC WB Ioniz Calcium Phosphorus 6.5 H* AST ALT Alkaline Phosphatase C-Reactive Protein Total Protein 5.3 L Albumin 3.1 L Urine Protein Urine Occult Blood Urine RBC 07/31/19 07/31/19 07/31/19 10:11 03:30 03:30 WBC RBC Hgb 10.7 L Hct 33.6 L MCH RDW 19.5 H MPV 7.1 L Gran # [place] # (Auto) Eos # (Auto) Seg Neutrophils % 94 H Lymphocytes % 5 L RBC Morphology Abnorm A Hypochromasia Anisocytosis 1+ A Microcytosis POC PT PT 29.9 H POC INR INR 2.9 H APTT POC Sodium Sodium Potassium 5.4 H Carbon Dioxide 21 L POC BUN BUN 38 H Creatinine 2.2 H POC Creatinine Glucose 167 H POC Glucose POC WB Ioniz Calcium Phosphorus 6.0 H* AST ALT Alkaline Phosphatase 128 H C-Reactive Protein Total Protein 5.5 L Albumin Urine Protein Urine Occult Blood Urine RBC 07/30/19 07/30/19 07/30/19 15:10 12:28 12:28 WBC 14.7 H RBC Hgb 11.6 L Hct MCH 25.4 L RDW 19.4 H MPV 6.8 L Gran # 10.4 H [place] # (Auto) 1.0 H Eos # (Auto) 0.8 H Seg Neutrophils % Lymphocytes % RBC Morphology Hypochromasia Anisocytosis Microcytosis POC PT 30.5 H PT POC INR 2.7 H INR APTT 59 H POC Sodium Sodium Potassium Carbon Dioxide POC BUN BUN Creatinine POC Creatinine Glucose POC Glucose POC WB Ioniz Calcium Phosphorus AST ALT Alkaline Phosphatase C-Reactive Protein Total Protein Albumin Urine Protein 100 A Urine Occult Blood 0.03 A Urine RBC 5 H 07/30/19 07/30/19 12:27 12:27 WBC RBC Hgb Hct MCH RDW MPV Gran # [place] # (Auto) Eos # (Auto) Seg Neutrophils % Lymphocytes % RBC Morphology Hypochromasia Anisocytosis Microcytosis POC PT PT POC INR INR APTT POC Sodium 132 L Sodium 132 L Potassium Carbon Dioxide POC BUN 34 H BUN 35 H Creatinine 2.2 H POC Creatinine 2.4 H Glucose 121 H POC Glucose 119 H POC WB Ioniz Calcium 1.13 L Phosphorus AST 38 H ALT 42 H Alkaline Phosphatase 163 H C-Reactive Protein 1.1 H Total Protein Albumin Urine Protein Urine Occult Blood Urine RBC Meds: Medications Acetaminophen (Tylenol) 650 mg PO Q4-6HP PRN; Protocol PRN Reason: Per Pain Protocol/Fever > 101 Hydrocodone Bitart/Acetaminophen ([place] 5/325mg) 0 tab PO Q4HP PRN; Protocol PRN Reason: Per Pain Protocol Albuterol/Ipratropium (Duoneb) 3 ml NEB Q4HP PRN PRN Reason: Shortness Of Breath Or Wheezing Last Admin: 08/01/19 01:57 Dose: 3 ml Documented by: Bisacodyl (Dulcolax) 10 mg NE Q2-3DAYS PRN PRN Reason: Constipation Bisoprolol Fumarate (Zebeta) 2.5 mg PO [facility] Last Admin: 07/31/19 20:45 Dose: 2.5 mg Documented by: Cyanocobalamin (Vitamin B-12) 1,000 mcg PO BID [facility] Stop: 08/04/19 09:01 Last Admin: 08/01/19 09:35 Dose: 1,000 mcg Documented by: Digoxin (Lanoxin) 125 mcg PO DAILY@1400 [facility] Last Admin: 07/31/19 13:58 Dose: 125 mcg Documented by: Diltiazem HCl (Cardizem Cd) 360 mg PO QDAY [facility] Last Admin: 08/01/19 09:35 Dose: 360 mg Documented by: Docusate Sodium (Colace) 100 mg PO BID [facility] Last Admin: 08/01/19 09:40 Dose: Not Given Documented by: Hydralazine HCl (Apresoline) 10 mg IV Q4-6HP PRN PRN Reason: Hypertension Last Admin: 08/01/19 01:57 Dose: 10 mg Documented by: Sodium Chloride (Sodium Chloride 0.9%) 1,000 mls @ 50 mls/hr IV .Q20H [facility] Stop: 08/02/19 06:12 Last Admin: 08/01/19 08:39 Dose: 50 mls/hr Documented by: Acetaminophen (Ofirmev) 650 mg in 65 mls @ 130 mls/hr IV Q6HP PRN; Protocol PRN Reason: Per Pain Protocol/Fever > 101 Potassium Chloride 40 meq/ (Dextrose) 520 mls @ 130 mls/hr IV UD PRN PRN Reason: K+ = or < 3.5 Magnesium Sulfate (Magnesium Sulfate) 2 gm in 50 mls @ 50 mls/hr IV UD PRN PRN Reason: MG = or < 1.7 Ceftriaxone Sodium 2 gm/ (Dextrose) 50 mls @ 100 mls/hr IV Q24H [facility]; Protocol Last Infusion: 08/01/19 10:40 Dose: Infused Documented by: Thiamine HCl 100 mg/ Sodium (Chloride) 51 mls @ 50 mls/hr IV DAILY [facility] Stop: 08/02/19 10:02 Last Infusion: 08/01/19 11:51 Dose: Infused Documented by: Iron Carb/Multivit/Buyer Broker/Folic Acid (Multivitamin W/Minerals) 1 tab PO DAILY [facility] Last Admin: 08/01/19 09:35 Dose: 1 tab Documented by: Levothyroxine Sodium (Synthroid) 75 mcg PO QAMAC [facility] Last Admin: 08/01/19 09:36 Dose: 75 mcg Documented by: Magnesium Hydroxide (Milk Of Magnesia) 30 ml PO HSP PRN PRN Reason: Constipation Melatonin (Melatonin 3mg Tablet) 3 mg PO HSP PRN PRN Reason: Insomnia Last Admin: 08/01/19 02:07 Dose: 3 mg Documented by: Methylprednisolone Sodium Succinate (Solu-Medrol) 60 mg IV Q12 [facility] Last Admin: 08/01/19 09:36 Dose: 60 mg Documented by: Metoprolol Tartrate (Lopressor) 5 mg IV Q5M PRN PRN Reason: Heart Rate > 140 bpm Ondansetron HCl (Zofran Odt) 4 mg SL Q4-6HP PRN; Protocol PRN Reason: Nausea And Vomiting Ondansetron HCl (Zofran) 4 mg IV Q4-6HP PRN; Protocol PRN Reason: Nausea And Vomiting Polyethylene Glycol (Miralax) 17 gm PO DAILYP PRN PRN Reason: Constipation Potassium Chloride (Klor-Con) 40 meq PO DAILYP PRN PRN Reason: K+ < 3.5 Senna/Docusate Sodium (Senna Plus Tablet) 1 tab PO HS [facility] Last Admin: 07/31/19 20:44 Dose: 1 tab Documented by: Sodium Chloride (Saline Flush) 10 ml IV Q8 [facility] Last Admin: 08/01/19 09:41 Dose: Not Given Documented by: Spironolactone (Aldactone) 12.5 mg PO DAILY [facility] Last Admin: 08/01/19 09:35 Dose: 12.5 mg Documented by: Warfarin Sodium (Coumadin Per Pharmacy) 1 order PO UD [facility] Medical - PN: A/P - Time Spent With Patient Total time spent is greater than 50% in coordination of care (as documented) at patient's floor/unit and/or counseling patient: 25 - 35 minutes (1) Sepsis with acute hypoxic respiratory failure Status: Acute Assessment and plan: * Acute respiratory failure with hypoxia -clinically improving on antibiotics. On baseline status oxygen * Acute pulmonary edema secondary to hypertensive crisis, clinically improved. Optimize hypertension control with addition of all medication/hydralazine. Hold ARB in light of elevated creatinine * Acute change mental status-clinically back at baseline. Off Cyclovir. Likely a manifestation of sepsis * Acute renal failure-creatinine baseline 1 currently at 2.2->2.6 renal ultrasounds negative. Off acyclovir. Hold ARB. Nephrology consult * COPD exacerbation continue steroids/bronchodilators and supplemental oxygen. * Elevated LFTs secondary to sepsis. Continue monitoring * Severe protein calorie malnutrition aggressive dietary intervention/dietitian consult * Anticoagulation on Coumadin. INR 4 * Tobacco dependence continue nicotine patch * Full code * Prophylaxis currently on anticoagulation Plan * Continue antibiotics/COPD management per guidelines * Nephrology consult in light of worsening renal function * Hold ARB, start hydralazine * PT OT/nutrition support * Anticoagulation on Coumadin * Discharge planning per case management Current Visit: Yes Medical - PN: Qual - Stroke Onset of Symptoms Date: 07/30/19 Onset of Symptoms Time: 08:00 Symptom Onset Unknown: No - VTE Deep Vein Thrombosis/Pulmonary Embolism Present on Admission: No
[2019-08-01] MEDS: DIGOXIN 125 MCG TABLET PO SCH (14:39)
[2019-08-01] MEDS: hydrALAZINE 10 MG TABLET PO SCH ×2 (15:55→21:45)
--- NOTE | 2019-08-01 19:41 | Nephrology Consult Note ---
History of Present Illness - Reason for Consult Patient information: Note initiated : 08/01/19 at 7:40 pm Service Date, if different from initiated Date: [] Patient: Leah Hong 84 y/o F admitted on 07/30/19 for Neuro defecit. Chief Complaint: [] Consult date: 08/01/19 acute renal failure Requesting physician: Mynor Bergman - Chief Complaint Brought to the ER with altered mental status - History of Present Illness According to the ER physician "the who states that she woke up this morning with a severe left-sided headache. Since then she's had intermittent episodes of confusion, talking gibberish, not making much sense. The. Recent does not have a focal neurologic deficit i.e. weakness, but she still complaining of headache, no history of nausea, vomiting, denies chest pain, follows commands but she's not able to make much sense with any conversation or question. The. Patient is repeatedly mumbling incomprehensible words and sometimes word salad." On presentation she was hypertensive in excess of 200/90 and tachycardic into the low 100/min range. T-max in the ER was 38 4 Initial lab assessment is as follows: Laboratory Tests 07/30/19 07/30/19 07/30/19 12:27 12:27 12:28 WBC 14.7 H Hgb 11.6 L Hct 37.3 MCV 81.9 Plt Count 404 Eos % (Auto) 5.3 Sodium 132 L Potassium 5.1 Chloride 97 Carbon Dioxide 23 BUN 35 H Creatinine 2.2 H GFR Calculation 20 Glucose 121 H Calcium 9.4 Phosphorus AST 38 H ALT 42 H Alkaline Phosphatase 163 H C-Reactive Protein 1.1 H Total Protein 6.9 Albumin 4.0 Globulin 2.9 Albumin/Globulin Ratio 1.4 Procalcitonin 07/30/19 07/31/19 18:13 03:30 WBC Hgb Hct MCV Plt Count Eos % (Auto) Sodium Potassium Chloride Carbon Dioxide BUN Creatinine GFR Calculation Glucose Calcium Phosphorus 6.0 H* AST ALT Alkaline Phosphatase C-Reactive Protein Total Protein Albumin Globulin Albumin/Globulin Ratio Procalcitonin < 0.10 Laboratory Tests 07/30/19 15:10 Urine Color Straw Urine Appearance Clear Urine pH 7.0 Ur Specific [place] 1.009 Urine Protein 100 A Urine Glucose (UA) Negative Urine Ketones Neg Urine Occult Blood 0.03 A Urine Nitrate Neg Urine Bilirubin Neg Urine Urobilinogen Neg Ur Leukocyte Esterase Neg Urine RBC 5 H Urine WBC 1 Ur Squamous Epith Cells 1 Urine Mucus Few Laboratory Tests 06/07/19 07/30/19 07/30/19 09:49 12:27 14:29 VBG Lactic Acid 0.7 Creatinine 1.1 2.2 H 07/31/19 08/01/19 03:30 03:40 VBG Lactic Acid Creatinine 2.2 H 2.6 H Serum Creatinine And discussion with the ER physician and hospitalist the patient was admitted with the following concerns: "Initial work-up was consistent with acute pulmonary edema/chest infiltrates and sepsis with a white count 14.7 and creatinine 2.2. Hospitalist service was consulted in light of severe sepsis/acute renal failure and high probability encephalitis in the setting of fever and mental status change. LP could not performed due to elevated INR. Patient was empirically started on Rocephin/vancomycin/acyclovir given a history of herpes." Reviewing the blood pressure readings there is no marked drop in blood pressure or over aggressive control of blood pressure so certainly acute renal failure proteinuria altered mental status argue for malignant hypertension and/or press syndrome While infectious etiologies are certainly consideration, the lack of positive blood cultures, lack of pyuria, low pro calcitonin level, go a long way to stopping empiric antibiotics after 72 hours. Also in the differential would be some sort of acute vasculitis affecting the THERAPEUTIC ASSISTANT and kidneys. In this case pauci immune GN and/or vasculitis with THERAPEUTIC ASSISTANT involvement are on the differential so up ANCA and other assorted serologies for acute vasculitis need to be sent. Head CT: IMPRESSION: 1. Severe white matter abnormality consistent with small vessel ischemic change. No interval change 2. No acute intracranial hemorrhage 3. Mild mastoiditis Review of Systems All systems PM: reviewed and no additional remarkable complaints except as stated (Altered MS, recalled getting sick and waking up in ED) Constitutional: headache(s) Ears: bilateral: decreased hearing Nose, mouth and throat: dry mouth Cardiovascular: claudication (S/p LE andioplast and stent on Warfarin) Respiratory: dyspnea, dyspnea on exertion, other (smoker) Gastrointestinal: as per HPI Genitourinary: no urinary frequency, no urinary hesitancy Musculoskeletal: no neck pain Integumentary: dry skin, no rash Neurological: abnormal speech, confusion, weakness Psychiatric: as per HPI Endocrine: as per HPI Hematologic/Lymphatic: as per HPI Allergic/Immunologic: as per HPI Past History Past medical history: Impaired glucose tolerance (Chronic) Encounter for Health Maintenance Examination in Adult (Chronic) Bronchitis (Acute) TIA (transient ischemic attack) (Chronic 12/05/14) Tobacco use (Chronic) Discontinuation of tobacco 07/2012 with component of moderately severe COPD, transient O2 use, continues nebulizer; secondary erythrocytosis, improving and she was congratulated in this regard; recent chest stable as regards to pulmonary nodules. Plan to rescreen on a yearly basis. Pulmonary nodule (Acute) Recent chest stable. Plan to rescreen on a yearly basis. Immunization up to date and discontinued tobacco 07/2012. Psoriasis (Chronic) Ultravate cream. Peripheral vascular disease (Chronic) Endarterectomy, right and left in 2005; last [place] review in 05/2010. Updated carotid doppler in 2009; negative previous aortic US 08/2011; right graft occulusion, now relegated to chronic Coumadin anticoagulation. Paroxysmal supraventricular tachycardia (Chronic) Normal cardiolite 08/2009. Osteopenia (Acute) Bone density 07/2010 T-score -1.2 spine and hip -3.3 with osteopenia at the spine. Declines further rescreening. Osteoarthrosis (Acute) At the hip on bone density 07/2010 T-score at the spine -1.2 and hip -3.3. Declines further medication addition and rescreening. Hypothyroidism (Chronic) Initiation of replacement. Hyperlipidemia (Chronic) Currently on medication. Hepatitis B infection (Acute) Positive hep B surface antibody around 2009 with no previous immunization, negative C antibody. Fibrocystic disease of breast (Acute) Previous reduction mammoplasty in 1996; exam stable. Questionable nodule on chest CT on the left lateral breast. S/P complete hysterectomy. Erythrocytosis (Chronic) Secondary to COPD, improving. Dyspepsia (Chronic) Stable on Prilosec; biliary sludge on previous upper GI workup; currently stable and under observation. Depression (Chronic) Chronic depression with the addition of situational. Currently taking medication. Degenerative arthritis (Chronic) Multi-joint; analgesics Colon polyps (Acute) 08/25/2015-Two tubular adenomas-Dr Daniel Colonoscopy 08/2009 showing adenomatous polyps, on 5 year sequencing. COPD (chronic obstructive pulmonary disease) (Chronic) Moderately severe, transient use of O2, continues nebulizer. Carotid stenosis (Acute 12/01/14) Back pain (Chronic) Chronic back pain; analgesics. S/P lumbar diskectomy [id number]. Arterial embolism and thrombosis of lower extremity (Acute 09/05/13) Aortic sclerosis (Acute 05/16/14) Antritis (stomach) (Acute) Stable on Prilosec; biliary sludge on previous upper GI workup. 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 Left repeated 02/2006 after occuded graft on the right in 07/2006 and has been relegated to Coumadin anticoagulation. History of esophagogastroduodenoscopy (Acute 11/04/09) Through Dr. Pyle. Revealed antritis. History of colonoscopy (Acute 09/07/09) 08/25/2015-Two tubular adenomas-Dr Daniel Showed 2 tubular adenomatous polyps. 5 year sequencing History of breast biopsy (Acute) X2 History of back surgery (Acute) 2001 & 2002 - X2 lumbar discectomy History of appendectomy (Acute) Family History Uncle Malignant neoplasm of lung Uncle Lymphoma Had some type of lymphoma Social History household members: spouse housing: house marital status: occupational status: retired smoking status: Current every day smoker tobacco type: cigarettes alcohol intake frequency: a few times a week substance use type: does not use Medical - H&P: Meds Home Medications Medication Instructions Recorded Confirmed Type ipratropium-albuterol 0.5 mg-3 3 ml INHALATION TID 30 Days #270 ml 08/19/15 07/30/19 Rx mg(2.5 mg base)/3 mL nebulization soln albuterol sulfate 90 mcg/actuation 1 puff INHALATION QID #18 g 10/26/15 07/30/19 Rx aerosol inhaler digoxin 125 mcg (0.125 mg) tablet 125 mcg PO QDAY 90 Days #90 tab 07/04/16 07/30/19 Rx levothyroxine 75 mcg tablet 75 mcg PO QDAY 90 Days #90 tab 02/20/17 07/30/19 Rx warfarin 1 mg tablet See Rx Instructions .ROUTE 06/14/17 07/30/19 Rx .COMPLEX #180 tab Bisoprolol Fumarate 2.5 mg PO HS 07/30/19 07/30/19 History Diltiazem HCl [Dilt-Xr] 360 mg PO QDAY 07/30/19 07/30/19 History Irbesartan [Avapro] 300 mg PO DAILY 07/30/19 07/30/19 History Metoprolol Succinate [Kapspargo 25 mg PO BID 07/30/19 07/30/19 History Sprinkle] Pravastatin [Pravachol] 40 mg PO HS 07/30/19 07/30/19 History Spironolactone [Aldactone] 12.5 mg PO DAILY 07/30/19 07/30/19 History Terazosin [Hytrin] 1 mg PO HS 07/30/19 07/30/19 History oxyCODONE HCL [Roxicodone] 5 mg PO Q6HP PRN 07/30/19 07/30/19 History traMADol HCL [Ultram] 100 mg PO DAILY 07/30/19 07/30/19 History Allergies Allergy/AdvReac Type Severity Reaction Status Date / Time hydrocodone Allergy Severe Itching Verified 07/30/19 12:10 Amoxicillin [From Augmentin] Allergy Unknown Other Verified 07/30/19 12:10 atorvastatin [From Lipitor] Allergy Unknown Other Verified 07/30/19 12:10 bupropion [From Wellbutrin] Allergy Unknown Other Verified 07/30/19 12:10 clavulanic acid Allergy Unknown Other Verified 07/30/19 12:10 [From Augmentin] nicotine [From Nicoderm CQ] Allergy Unknown Other Verified 07/30/19 12:10 NSAIDS (Non-Steroidal Allergy Unknown Other Verified 07/30/19 12:10 Anti-Inflamma piperacillin [From Zosyn] Allergy Unknown Hives Verified 07/30/19 12:10 rosuvastatin [From Crestor] Allergy Unknown Other Verified 07/30/19 12:10 [id number]-[id number]-[id number] Reductase Allergy Unknown Unknown Verified 07/30/19 12:10 Inhibitor tazobactam [From Zosyn] Allergy Unknown Hives Verified 07/30/19 12:10 Medications and Allergies Home Medications Medication Instructions Recorded Confirmed Type ipratropium-albuterol 0.5 mg-3 3 ml INHALATION TID 30 Days #270 ml 08/19/15 07/30/19 Rx mg(2.5 mg base)/3 mL nebulization soln albuterol sulfate 90 mcg/actuation 1 puff INHALATION QID #18 g 10/26/15 07/30/19 Rx aerosol inhaler digoxin 125 mcg (0.125 mg) tablet 125 mcg PO QDAY 90 Days #90 tab 07/04/16 07/30/19 Rx levothyroxine 75 mcg tablet 75 mcg PO QDAY 90 Days #90 tab 02/20/17 07/30/19 Rx warfarin 1 mg tablet See Rx Instructions .ROUTE 06/14/17 07/30/19 Rx .COMPLEX #180 tab Bisoprolol Fumarate 2.5 mg PO HS 07/30/19 07/30/19 History Diltiazem HCl [Dilt-Xr] 360 mg PO QDAY 07/30/19 07/30/19 History Irbesartan [Avapro] 300 mg PO DAILY 07/30/19 07/30/19 History Metoprolol Succinate [Kapspargo 25 mg PO BID 07/30/19 07/30/19 History Sprinkle] Pravastatin [Pravachol] 40 mg PO HS 07/30/19 07/30/19 History Spironolactone [Aldactone] 12.5 mg PO DAILY 07/30/19 07/30/19 History Terazosin [Hytrin] 1 mg PO HS 07/30/19 07/30/19 History oxyCODONE HCL [Roxicodone] 5 mg PO Q6HP PRN 07/30/19 07/30/19 History traMADol HCL [Ultram] 100 mg PO DAILY 07/30/19 07/30/19 History Allergies Allergy/AdvReac Type Severity Reaction Status Date / Time hydrocodone Allergy Severe Itching Verified 07/30/19 12:10 Amoxicillin [From Augmentin] Allergy Unknown Other Verified 07/30/19 12:10 atorvastatin [From Lipitor] Allergy Unknown Other Verified 07/30/19 12:10 bupropion [From Wellbutrin] Allergy Unknown Other Verified 07/30/19 12:10 clavulanic acid Allergy Unknown Other Verified 07/30/19 12:10 [From Augmentin] nicotine [From Nicoderm CQ] Allergy Unknown Other Verified 07/30/19 12:10 NSAIDS (Non-Steroidal Allergy Unknown Other Verified 07/30/19 12:10 Anti-Inflamma piperacillin [From Zosyn] Allergy Unknown Hives Verified 07/30/19 12:10 rosuvastatin [From Crestor] Allergy Unknown Other Verified 07/30/19 12:10 Sxodtfk-Dcy-Djb Reductase Allergy Unknown Unknown Verified 07/30/19 12:10 Inhibitor tazobactam [From Zosyn] Allergy Unknown Hives Verified 07/30/19 12:10 Exam - Vital Signs Vital signs: Temp Pulse Resp BP Pulse Ox 36.6 C 76 19 153/72 98 08/01/19 12:01 08/01/19 10:03 08/01/19 18:29 08/01/19 18:01 08/01/19 14:00 - General Appearance General appearance: appears started age, chronically ill EENT: ATNC, PERRL (No papilledema bilaterally), mucous membranes dry, vision intact, hearing diminished Neck: no JVD, no carotid bruit, supple Respiratory: rhonchi Cardiology: no murmurs, no rub, no edema, normal S1, normal S2 Gastrointestinal: normoactive bowel sounds, no tenderness, no guarding, abdominal bruit (left greater than right) Integumentary: no rash, ecchymotic Neurologic: no focal deficit, no asterixis, alert and oriented x3, CN 3-12 intact Musculoskeletal: no deformities, no erythema, no cyanosis, no clubbing Psychiatric: mood/affect appropriate, cooperative Results - Lab Results 08/01/19 03:40 08/01/19 03:40 Most recent lab results Calcium 8.6 mg/dl (8.6-10.4) 08/01/19 03:40 Phosphorus 6.5 mg/dL (2.7-4.5) H* 08/01/19 03:40 Magnesium 2.1 mg/dL (1.6-2.5) 08/01/19 03:40 - Image Kidney/bladder ultrasound: report reviewed (MPRESSION:), other (MPRESSION:) Assessment and Plan - Narrative A/P Narrative: Assessment: 1. Accelerated/Malignant HTN Acute alteration in MS Acute renal failure Proteinuria 2. ARF in patient with HTN and vasculopathy Abdominal bruits suggest RV disease Altered mental status and ARF with proteinuria and 5 RBC's could repsesent and acute vasculitis 3. 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 Goal BP 160/90 for now 2. Avoid ACEi, ARB, Aldactone, and NSAIDs 3. Renal doppler to r/o CASSIA in Hypertensive vasculopath 4. MRI brain for changes of PRES 5. MRA of brain for beading of vessels seen with vasculitis (admittedly low yield) 6. Inflammatory biomarkers 7. ANCA, MAZIN, C3,C4,hep B Sag 8. Random urine Na, protein and creatinine for FeNa and proteine/creatinine ra alayna
[2019-08-01] MEDS: TERAZOSIN 1 MG CAPSULE PO SCH (21:45)
[2019-08-01] MEDS: BISOPROLOL 5 MG TABLET PO SCH (21:46)
[2019-08-01] MEDS: METOPROLOL TARTRATE 25 MG TABLET PO SCH (21:46)
[2019-08-01] MEDS: SENNOSIDES/DOCUSATE SODIUM 1 TAB TABLET PO SCH (21:47)
[2019-08-01] MEDS: SIMVASTATIN 10 MG TABLET PO SCH (21:48)
[2019-08-02 05:22] LABS: Hematocrit 30.6 % (36.0-48.0); Hemoglobin 9.7 g/dL (12.0-15.0); Mean Cell Volume 82.2 fL (80.0-100.0); Mean Corpuscular HGB Conc 31.6 g/dL (31.0-36.0); Platelet Count 338 K/mcL (140-440); RBC 3.72 M/mcL (4.00-5.20); Red Cell Distribution Width 19.4 % (11.5-14.5); WBC 13.8 K/mcL (4.5-11.0)
[2019-08-02] MEDS: 0.9 % SODIUM CHLORIDE 10 ML SYRINGE IV SCH ×3 (05:47→21:50)
[2019-08-02 05:53] LABS: INR 4.3 (0.9-1.1); Prothrombin Time 40.8 sec (11.9-14.5)
[2019-08-02 05:58] LABS: ALT/SGPT 29 U/l (0-40); AST/SGOT 21 U/l (0-37); Albumin 3.2 gm/dL (3.2-5.2); Albumin/Globulin Ratio 1.5 (1.0-2.3); Alkaline Phosphatase 101 U/L (39-117); Bilirubin,Direct < 0.2 mg/dL (0.0-0.3); Bilirubin,Total < 0.2 mg/dL (0.0-1.0); Blood Urea Nitrogen 55 mg/dl (8-23); Calcium 8.6 mg/dl (8.6-10.4); Carbon Dioxide 20 mmol/L (22-30); Chloride 101 mmol/L (96-108); Globulin 2.1 gm/dL (2.2-3.7); Glomerular Filtration Rate 17; Glucose 209 mg/dL (70-105); Lactate Dehydrogenase 175 U/L (94-250); Phosphorous 5.2 mg/dL (2.7-4.5); Triglycerides 151 mg/dl (<150); Uric Acid 7.8 mg/dL (2.5-8.0)
[2019-08-02] MEDS: IPRATROPIUM/ALBUTEROL 3 ML AMPUL.NEB NEB PRN (06:24)
[2019-08-02 06:28] LABS: Sodium, Urine Random < 20 mmol/L; Uric Acid,Urine Random 30.2 mg/dL
[2019-08-02 07:01] LABS: Anisocytosis 1+ (NONE SEEN); Hypochromasia 1+ (NONE SEEN); Lymphocytes % 5 % (15-49); Monocytes % (Manual) 2 % (1-12); Platelet Estimate NORMAL (NORMAL); Polychromasia 1+ (NONE SEEN); RBC Morphology ABNORM (NORMAL); Segmented Neutrophils % 93 % (38-78)
--- NOTE | 2019-08-02 07:26 | Nephrology Progress Note ---
Subjective Patient information: Note initiated : 08/02/19 at 7:24 am Patient: Leah Hong 84 y/o F admitted on 07/30/19 for Neuro defecit. Chief Complaint: Weakness Pertinent ROS: Weakness Feels better No edema Fitzgerald catheter Objective - Vital Signs Vital signs: Vital Signs Temp Pulse Resp BP Pulse Ox 08/02/19 06:32 21 92 08/02/19 06:26 72 19 96 08/02/19 06:05 66 15 164/68 98 08/02/19 05:01 67 18 159/67 96 08/02/19 04:01 98.3 F 69 21 156/57 94 08/02/19 03:01 65 17 153/64 98 08/02/19 02:35 96 08/02/19 02:27 72 17 97 08/02/19 02:01 66 25 H 153/59 94 08/02/19 01:01 72 15 159/88 96 08/02/19 00:01 97.6 F 71 17 166/75 97 08/01/19 23:17 72 18 95 08/01/19 23:01 73 11 L 166/71 100 08/01/19 22:51 78 17 08/01/19 22:50 74 30 H 98 08/01/19 22:01 77 32 H 158/76 98 08/01/19 21:01 74 34 H 172/68 96 08/01/19 20:40 74 18 95 08/01/19 20:01 97.8 F 73 19 156/66 96 08/01/19 19:01 72 19 170/64 96 08/01/19 18:29 19 08/01/19 18:01 24 H 153/72 08/01/19 17:51 16 165/93 08/01/19 17:11 14 136/91 08/01/19 16:27 20 08/01/19 16:24 13 142/91 08/01/19 15:01 18 150/62 08/01/19 14:50 18 08/01/19 14:01 18 147/65 08/01/19 14:00 98 08/01/19 13:40 17 08/01/19 13:01 21 140/73 08/01/19 12:10 18 08/01/19 12:01 97.8 F 18 161/66 08/01/19 11:53 18 08/01/19 11:02 17 147/66 08/01/19 10:03 76 17 169/69 98 08/01/19 09:02 78 20 134/69 98 08/01/19 08:00 98 Intake and Output 08/01/19 08/02/19 08/02/19 21:59 05:59 13:59 Intake Total 420 480 Output Total 640 315 30 Balance -220 165 -30 Intake: Oral 420 480 Output: Urine Catheter Amount 565 285 30 Void Amount 75 30 Other: Meal Dinner Nourishment/Supplement Percent of Meal Consumed 100% Urine Appearance Clear Clear Clear Uretheral (Fitzgerald) Clear Clear Urine Color Dark Yellow Straw Straw Uretheral (Fitzgerald) Dark Yellow Straw Urine Odor Normal Normal Normal Stool Size Small Stool Color Brown Brown Stool Consistency Loose # Bowel Movements 1 1 Weight 108 lb 8 oz Intake & Output: Intake & Output 08/01/19 08/02/19 08/02/19 21:59 05:59 13:59 Intake Total 420 480 Output Total 640 315 30 Balance -220 165 -30 Weight 108 lb 8 oz Intake: Oral 420 480 Output: Urine Catheter Amount 565 285 30 Void Amount 75 30 Other: Meal Dinner Nourishment/Supplement Percent of Meal Consumed 100% Urine Appearance Clear Clear Clear Uretheral (Fitzgerald) Clear Clear Urine Color Dark Yellow Straw Straw Uretheral (Fitzgerald) Dark Yellow Straw Urine Odor Normal Normal Normal Stool Size Small Stool Color Brown Brown Stool Consistency Loose # Bowel Movements 1 1 - General Appearance General appearance: appears started age, fatigue EENT: mucous membranes moist Neck: supple Respiratory: clear Cardiology: no edema Gastrointestinal: no tenderness Integumentary: warm and dry Neurologic: no focal deficit Musculoskeletal: no deformities Psychiatric: mood/affect appropriate, cooperative - Lab 08/02/19 03:40 08/02/19 03:40 Most recent lab results Calcium 8.6 mg/dl (8.6-10.4) 08/02/19 03:40 Phosphorus 5.2 mg/dL (2.7-4.5) H 08/02/19 03:40 Magnesium 2.4 mg/dL (1.6-2.5) 08/02/19 03:40 Assessment and Plan (1) Acute on chronic renal failure Leah Hong is an 84-year-old female with coronary artery disease and peripheral vascular disease with extremely heavy atherosclerotic plaques s/p endarter ectomies and grafts on Coumadin anticoagulation, hypertension, hyperlipidemia, hypothyroidism, chronic hypoxic hypercapnic respiratory failure due to chronic obstructive pulmonary disease, chronic kidney disease stage 3, history of CVA, admitted on 07/30/19. Acute kidney injury on chronic kidney disease stage 3 with initial hyperkalemia and metabolic acidosis, associated with sepsis, present on arrival. There is no recent history of IV contrast administration or NSAID use. Acute glomerulonep hritis and acute interstitial nephritis considered. Work up: Urinalysis on 07/30/19: Straw, Clear, pH 7.0, SG 1.009, protein 100, occult blood 0.03, leukocyte esterase negative. Urine Sodium on 08/02/19: Pending. Urine eosinophil smear on 08/02/19: TNP. Urine random total protein on 08/02/19: Pending. Labs on 08/02/19: HBsAg non reactive, C3 Pending, MAZIN Pending, ANCA screen Pending. US Renal on 07/30/19: Multiple renal cysts bilaterally. No hydronephrosis. Renal cortex appears somewhat thinned bilaterally. Renal cortex is echogenic consistent with medical renal disease. Progress: Blood pressure: 164/68 Urine output: 1100+ ml reported in the past 24 hours. Serum creatinine 2.6, did not change in the past 24 hours. Metabolic acidosis. No fluid overload. Recommendations/Plan: No acute hemodialysis need. Avoid NSAIDs, LIO/ARB, nephrotoxic medications and IV contrast. Monitor BMP and urine output. Status: Acute Priority: High Qualifiers: Acute renal failure type: unspecified Chronic kidney disease stage: stage 3 (moderate) Qualified Code(s): N17.9 - Acute kidney failure, unspecified; N18.3 - Chronic kidney disease, stage 3 (moderate)
[2019-08-02] MEDS: cefTRIAXone 2 GM in DEXTROSE 5% IN WATER 50 ML IV SCH (09:00)
[2019-08-02] MEDS: THIAMINE 100 MG in 0.9 % SODIUM CHLORIDE 50 ML IV SCH (09:00)
[2019-08-02] MEDS: DILTIAZEM 180 MG CAP.XL.24H PO SCH (10:37)
[2019-08-02] MEDS: MULTIVIT,THER IRON,CA,FA & MIN 1 TABLET PO SCH (10:37)
[2019-08-02] MEDS: methylPREDNISolone SOD SUCC 125 MG/2 ML VIAL IV SCH ×2 (10:37→21:50)
[2019-08-02] MEDS: METOPROLOL TARTRATE 25 MG TABLET PO SCH ×2 (10:37→21:49)
[2019-08-02] MEDS: DOCUSATE SODIUM 100 MG CAPSULE PO SCH ×2 (10:37→21:50)
[2019-08-02] MEDS: CYANOCOBALAMIN (VITAMIN B-12) 500 MCG TABLET PO SCH ×2 (10:37→21:50)
[2019-08-02] MEDS: SPIRONOLACTONE 25 MG TABLET PO SCH (10:38)
[2019-08-02] MEDS: LEVOTHYROXINE 75 MCG TABLET PO SCH (10:46)
[2019-08-02] MEDS: hydrALAZINE 10 MG TABLET PO SCH ×3 (10:46→21:49)
[2019-08-02] MEDS ORDERED: LORazepam 1 MG TABLET PO STA (10:57)
--- NOTE | 2019-08-02 12:11 | XRay Report ---
CLINICAL INFORMATION:Aspiration during modified barium swallow TECHNIQUE: PA upright chest x-ray COMPARISON: Previous chest x-rays dated 07/30/2019, 01/20/2017, 12/07/2015 FINDINGS:Aspiration was demonstrated during barium swallow. No definite barium identified within the tracheobronchial tree. Barium was probably cleared. No focal pulmonary parenchymal infiltrate. No evidence for acute aspiration pneumonia. There are findings consistent with COPD IMPRESSION: No barium identified within the tracheobronchial tree Interpreted and Authenticated by: Stephen Burrell 08/02/19
--- NOTE | 2019-08-02 13:11 | Magnetic Resonance Report ---
CLINICAL INFORMATION: Cerebral vasculitis TECHNIQUE: Routine MRA of the [place] of [place] COMPARISON: None. FINDINGS: Left vertebral artery ends in the posterior inferior cerebellar artery. Right vertebral artery supplies the basilar artery. There is a focal stenosis at the right vertebral basilar junction. This is patent. Basilar artery is a small caliber vessel. Basilar artery is patent without focal stenosis. Very small caliber P1 segment of the left posterior cerebral artery. Left posterior cerebral artery is supplied predominantly through the posterior communicating artery. The right posterior communicating artery is also patent. Distal cervical, petrous, cavernous, supraclinoid segments of the internal carotid arteries are normal bilaterally. There is mild luminal irregularity of the A1 segments of the anterior cerebral arteries. No focal stenosis. There is stenosis at the junction of the right M1 and M2 segments of the right middle cerebral artery. There is no complete occlusion. A1 segment of the left anterior cerebral artery and M1 segment of the left middle cerebral artery are negative. No focal stenosis. Small vessels are not well visualized and examination is not diagnostic for small vessel vasculitic change. No intracranial aneurysm or arteriovenous malformation IMPRESSION: 1. Findings consistent with intracranial stenoses. There are stenoses at the right vertebral basilar junction and at the junction of the M1 and M2 segments of the right middle cerebral artery 2. No vascular occlusion Interpreted and Authenticated by: Stephen Burrell 08/02/19
--- NOTE | 2019-08-02 13:25 | XRay Report ---
CLINICAL INFORMATION: Difficulty swallowing TECHNIQUE: Modified barium swallow was performed by the speech pathologist. 50 seconds fluoroscopy utilized. COMPARISON: None. FINDINGS: Airway penetration without aspiration was demonstrated with thin barium. No aspiration is demonstrated. There is dense tracheal calcification which has an appearance similar to aspiration but this was present on animal behaviourist film as well. Chest x-ray demonstrates no barium within the tracheobronchial tree. IMPRESSION: 1. Modified barium swallow performed by speech pathology 2. Airway penetration without aspiration during thin liquid ingestion Interpreted and Authenticated by: Stephen Burrell 08/02/19
[2019-08-02] MEDS: DIGOXIN 125 MCG TABLET PO SCH (14:12)
--- NOTE | 2019-08-02 14:53 | Internal Med Progress Note ---
Medical - PN: Subj Patient information: Note initiated : 08/02/19 at 2:51 pm Service Date, if different from initiated Date: [] Patient: Leah Hong a 84 y/o F admitted on 07/30/19 for Neuro defecit. Chief Complaint: [] Interval history: Ms. 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 She also noted worsening confusion along with left-sided headache that started abruptly this morning. Symptoms persisted for a few hours and was associated with a fever of 101.8. She denies experiencing associated photophobia. She is hard of hearing. Most of the history was obtained from patient's . Initial work-up was consistent with acute pulmonary edema/chest infiltrates and sepsis with a white count 14.7 and creatinine 2.2. Hospitalist service was consulted in light of severe sepsis/acute renal failure and high probability encephalitis in the setting of fever and mental status change. LP could not performed due to elevated INR. Patient was empirically started on Rocephin/vancomycin/acyclovir given a history of herpes. At the time of my evaluation patient denies associated chest pain, diarrhea, dysuria or bloody stool. She endorses to weight loss. She is very hard of hearing and is extremely distressed sitting up on bed labored unable to talk in full sentences. 07/31-patient seen in room. Feeling a lot better. Improved white count down to 7000. Potassium 5.4 creatinine 2.2. Improved blood pressure control. Imp roving hypoxia. Mental status much improved. Family members at bedside. Case discussed with patient's daughter Casimiro and other family members. Continue close monitoring. 08/01-patient clinically improving however worsening white count of 12.7. Hemoglobin 9.3. INR 4. Patient complains of intermittent green and red spots in visual field. CT shows extensive ischemic past microvascular changes throughout the white matter. INR therapeutic. Potassium down from 5.4-5.1. Creatinine up from 2.2->2.6. If deteriorating renal function will consult nephrology. Blood pressure 140s to 160s systolic, start home medications except for ARB. Hydralazine 10 3 times daily. Patient clinically feels better however persistent elevated white count of 13.8, creatinine 2.6. Nephrology on board. INR 4.5. Discontinue antibiotics in 24 hours. Nephrology optimizing antihypertensive management. No telemetry events or concerns per staff. Modified barium swallow completed. Or ST continue dysphagia level 6 diet and mildly thick liquids. Continue aspiration precautions. - Constitutional Vitals: Vital Signs Temp Pulse Resp BP Pulse Ox 97.8 F 70 20 183/76 98 08/02/19 13:00 08/02/19 06:26 08/02/19 13:00 08/02/19 13:00 08/02/19 13:00 Period Temp Pulse Resp BP Sys/Newman Pulse Ox Last 24 Hr 97.6 F-98.7 F 65-78 11-34 136-183/57-117 92-100 Intake and Output 08/02/19 08/02/19 08/02/19 05:59 13:59 21:59 Intake Total 480 1101 Output Total 315 30 Balance 165 1071 Intake & Output: Intake & Output 08/02/19 08/02/19 08/02/19 05:59 13:59 21:59 Intake Total 480 1101 Output Total 315 30 Balance 165 1071 Intake: IV 1101 Sodium Chloride 0.9% 1,000 ml @ 1000 50 mls/hr IV .Q20H [facility] Rx#: [id number] Vitamin B1 100 mg In Sodium 51 Chloride 0.9% 50 ml @ 50 mls/hr IV DAILY [facility] Rx#:[id number] Rocephin 2 gm In Dextrose 5% in 50 Water 50 ml @ 100 mls/hr IV Q24H [facility] Rx#:[id number] Oral 480 Output: Urine Catheter Amount 285 30 Void Amount 30 Other: Meal Nourishment/Supplement Percent of Meal Consumed 100% Urine Appearance Clear Clear Uretheral (Fitzgerald) Clear Urine Color Straw Straw Uretheral (Fitzgerald) Straw Urine Odor Normal Normal Stool Size Small Stool Color Brown Stool Consistency Loose # Bowel Movements 1 General appearance: no acute distress Exam: Alert oriented Nonlabored breathing No anxiety Fitzgerald draining clear urine No telemetry events Medical - PN: Obj Da - Labs CBC & Chem 7: 08/02/19 03:40 08/02/19 03:40 Labs: Abnormal Lab Results 08/02/19 08/02/19 08/02/19 03:40 03:40 03:40 WBC RBC Hgb Hct MCH RDW MPV Seg Neutrophils % Lymphocytes % RBC Morphology Polychromasia Hypochromasia Anisocytosis Microcytosis ESR 21 H PT 40.8 H INR 4.3 H Potassium Carbon Dioxide 20 L BUN 55 H Creatinine 2.6 H Glucose 209 H Phosphorus 5.2 H Alkaline Phosphatase Total Protein 5.3 L Albumin Globulin 2.1 L Triglycerides 151 H Urine Protein Urine Occult Blood Urine RBC 08/02/19 08/01/19 08/01/19 03:40 03:40 03:40 WBC 13.8 H RBC 3.72 L Hgb 9.7 L Hct 30.6 L MCH RDW 19.4 H MPV 7.0 L Seg Neutrophils % 93 H Lymphocytes % 5 L RBC Morphology Abnorm A Polychromasia 1+ A Hypochromasia 1+ A Anisocytosis 1+ A Microcytosis ESR PT 38.2 H INR 4.0 H Potassium Carbon Dioxide 21 L BUN 47 H Creatinine 2.6 H Glucose 166 H Phosphorus 6.5 H* Alkaline Phosphatase Total Protein 5.3 L Albumin 3.1 L Globulin Triglycerides Urine Protein Urine Occult Blood Urine RBC 08/01/19 07/31/19 07/31/19 03:40 10:11 03:30 WBC 12.7 H RBC 3.59 L Hgb 9.3 L Hct 29.3 L MCH 25.8 L RDW 18.6 H MPV 7.0 L Seg Neutrophils % 96 H Lymphocytes % 4 L RBC Morphology Abnorm A Polychromasia Hypochromasia 1+ A Anisocytosis 1+ A Microcytosis Few A ESR PT 29.9 H INR 2.9 H Potassium 5.4 H Carbon Dioxide 21 L BUN 38 H Creatinine 2.2 H Glucose 167 H Phosphorus 6.0 H* Alkaline Phosphatase 128 H Total Protein 5.5 L Albumin Globulin Triglycerides Urine Protein Urine Occult Blood Urine RBC 07/31/19 07/30/19 03:30 15:10 WBC RBC Hgb 10.7 L Hct 33.6 L MCH RDW 19.5 H MPV 7.1 L Seg Neutrophils % 94 H Lymphocytes % 5 L RBC Morphology Abnorm A Polychromasia Hypochromasia Anisocytosis 1+ A Microcytosis ESR PT INR Potassium Carbon Dioxide BUN Creatinine Glucose Phosphorus Alkaline Phosphatase Total Protein Albumin Globulin Triglycerides Urine Protein 100 A Urine Occult Blood 0.03 A Urine RBC 5 H Meds: Medications Acetaminophen (Tylenol) 650 mg PO Q4-6HP PRN; Protocol PRN Reason: Per Pain Protocol/Fever > 101 Hydrocodone Bitart/Acetaminophen ([place] 5/325mg) 0 tab PO Q4HP PRN; Protocol PRN Reason: Per Pain Protocol Albuterol/Ipratropium (Duoneb) 3 ml NEB Q4HP PRN PRN Reason: Shortness Of Breath Or Wheezing Last Admin: 08/02/19 06:24 Dose: 3 ml Documented by: Bisacodyl (Dulcolax) 10 mg OR Q2-3DAYS PRN PRN Reason: Constipation Bisoprolol Fumarate (Zebeta) 2.5 mg PO HS [facility] Last Admin: 08/01/19 21:46 Dose: 2.5 mg Documented by: Cyanocobalamin (Vitamin B-12) 1,000 mcg PO BID [facility] Stop: 08/04/19 09:01 Last Admin: 08/02/19 10:37 Dose: 1,000 mcg Documented by: Digoxin (Lanoxin) 125 mcg PO DAILY@1400 [facility] Last Admin: 08/02/19 14:12 Dose: 125 mcg Documented by: Diltiazem HCl (Cardizem Cd) 360 mg PO QDAY [facility] Last Admin: 08/02/19 10:37 Dose: 360 mg Documented by: Docusate Sodium (Colace) 100 mg PO BID [facility] Last Admin: 08/02/19 10:37 Dose: 100 mg Documented by: Hydralazine HCl (Apresoline) 10 mg IV Q4-6HP PRN PRN Reason: Hypertension Last Admin: 08/01/19 01:57 Dose: 10 mg Documented by: Hydralazine HCl (Apresoline) 10 mg PO TID [facility] Last Admin: 08/02/19 14:12 Dose: 10 mg Documented by: Acetaminophen (Ofirmev) 650 mg in 65 mls @ 130 mls/hr IV Q6HP PRN; Protocol PRN Reason: Per Pain Protocol/Fever > 101 Potassium Chloride 40 meq/ (Dextrose) 520 mls @ 130 mls/hr IV UD PRN PRN Reason: K+ = or < 3.5 Magnesium Sulfate (Magnesium Sulfate) 2 gm in 50 mls @ 50 mls/hr IV UD PRN PRN Reason: MG = or < 1.7 Ceftriaxone Sodium 2 gm/ (Dextrose) 50 mls @ 100 mls/hr IV Q24H [facility]; Protocol Last Infusion: 08/02/19 09:30 Dose: Infused Documented by: Iron Carb/Multivit/[place]/Folic Acid (Multivitamin W/Minerals) 1 tab PO DAILY [facility] Last Admin: 08/02/19 10:37 Dose: 1 tab Documented by: Levothyroxine Sodium (Synthroid) 75 mcg PO QAMAC [facility] Last Admin: 08/02/19 10:46 Dose: 75 mcg Documented by: Magnesium Hydroxide (Milk Of Magnesia) 30 ml PO HSP PRN PRN Reason: Constipation Melatonin (Melatonin 3mg Tablet) 3 mg PO HSP PRN PRN Reason: Insomnia Last Admin: 08/01/19 02:07 Dose: 3 mg Documented by: Methylprednisolone Sodium Succinate (Solu-Medrol) 60 mg IV Q12 [facility] Last Admin: 08/02/19 10:37 Dose: 60 mg Documented by: Metoprolol Tartrate (Lopressor) 5 mg IV Q5M PRN PRN Reason: Heart Rate > 140 bpm Metoprolol Tartrate (Lopressor) 25 mg PO BID [facility] Last Admin: 08/02/19 10:37 Dose: 25 mg Documented by: Ondansetron HCl (Zofran Odt) 4 mg SL Q4-6HP PRN; Protocol PRN Reason: Nausea And Vomiting Ondansetron HCl (Zofran) 4 mg IV Q4-6HP PRN; Protocol PRN Reason: Nausea And Vomiting Oxycodone HCl (Roxicodone) 5 mg PO Q6HP PRN; Protocol PRN Reason: Pain Polyethylene Glycol (Miralax) 17 gm PO DAILYP PRN PRN Reason: Constipation Potassium Chloride (Klor-Con) 40 meq PO DAILYP PRN PRN Reason: K+ < 3.5 Senna/Docusate Sodium (Senna Plus Tablet) 1 tab PO HS [facility] Last Admin: 08/01/19 21:47 Dose: Not Given Documented by: Simvastatin (Zocor) 10 mg PO HS [facility] Last Admin: 08/01/19 21:48 Dose: 10 mg Documented by: Sodium Chloride (Saline Flush) 10 ml IV Q8 [facility] Last Admin: 08/02/19 14:10 Dose: 10 ml Documented by: Spironolactone (Aldactone) 12.5 mg PO DAILY [facility] Last Admin: 08/02/19 10:38 Dose: 12.5 mg Documented by: Terazosin HCl (Hytrin) 1 mg PO [facility] Last Admin: 08/01/19 21:45 Dose: 1 mg Documented by: Warfarin Sodium (Coumadin Per Pharmacy) 1 [place] PO [facility] [place] - PN: A/P - Time Spent With Patient Total time spent is greater than 50% in coordination of care (as documented) at patient's floor/unit and/or counseling patient: 25 - 35 minutes (1) Sepsis with acute hypoxic respiratory failure Status: Acute Assessment and plan: * Acute renal failure-creatinine baseline 1 currently at 2.2->2.6 nephrology on board. Pending investigation * Accelerated hypertension -currently managed by nephrology. * Acute respiratory failure with hypoxia -clinically improved now at baseline status oxygen * Acute pulmonary edema secondary to hypertensive crisis, clinically improved. * Acute change mental status-likely secondary accelerated hypertension. Clinically resolved * COPD exacerbation resolved with bronchodilator steroids and continued oxygen * Elevated LFTs secondary to sepsis. Continue monitoring * Severe protein calorie malnutrition aggressive dietary intervention/dietitian consult * Dysphagia continue diet per ST recommendations. Completed modified barium swallow * Anticoagulation on Coumadin. INR 4.5 * Tobacco dependence continue nicotine patch * Full code * Prophylaxis currently on anticoagulation Plan * De-escalate antibiotics in 24 hours * Continue hypertension/renal failure management per nephrology * PT OT/nutrition support * Dysphagia diet as per ST * Coumadin dosing based on INR * Discharge planning per case management Current Visit: Yes Medical - PN: Qual - Stroke Onset of Symptoms Date: 07/30/19 Onset of Symptoms Time: 08:00 Symptom Onset Unknown: No - VTE Deep Vein Thrombosis/Pulmonary Embolism Present on Admission: No
--- NOTE | 2019-08-02 15:06 | Magnetic Resonance Report ---
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 There is no acute infarction. Susceptibility images demonstrate round foci of susceptibility in the right frontal lobe.. Findings are consistent with residua from old hemorrhagic abnormality. This could be a cavernous angioma or old diffuse axonal injury. No other areas of susceptibility in either cerebral hemisphere or cerebellum There is extensive white matter abnormality. This is predominantly periventricular although involves the subcortical white matter. Findings are nonspecific and the C4-year-old patient. Adenopathy would commonly be secondary to small vessel ischemic change. 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 Vasculitis can cause similar abnormality. No well-defined focal abnormality. No localized mass effect. No midline shift. Brain volume is within normal limits for age Brainstem and cerebellum are negative. No focal abnormality. No extra-axial come intracranial abnormality. Normal flow void within vessels at the base of the brain. Basilar artery is a small caliber vessel. There is signal abnormality in the right mastoid sinuses consistent with mastoid sinusitis. There is mild mucosal thickening within anterior ethmoid sinuses bilaterally. IMPRESSION: 1. No acute abnormality 2. Severe white matter abnormality in both cerebral hemispheres. Findings may be due to small vessel ischemic change of the [employer] vasculitis could have a similar appearance 3. No acute or focal abnormality. No restricted diffusion 4. Small foci of susceptibility in the right frontal lobe. 5. Right mastoiditis Interpreted and Authenticated by: Stephen Burrell 08/02/19
--- NOTE | 2019-08-02 18:56 | Ultrasound Report ---
CLINICAL INFORMATION: Hypertension TECHNIQUE: Grayscale and color-flow duplex imaging COMPARISON: None. FINDINGS: Right kidney measures 11.8 x 5.6 x 5.4 cm. Left kidney measures 13.1 x 5.9 x 6.8 cm. There are multiple cysts of varying size in the kidneys. No solid mass. No hydronephrosis. Right resistive indices measure 0.72-0.78. These values are elevated Left resistive indices measure 0.76-0.81. Values are elevated No right renal artery stenosis. There are 2 left renal arteries. There is hemodynamically significant stenosis in one of the left renal arteries. Velocity is elevated to 458 cm/s. Renal artery to aortic ratio is greater than 3. Second left renal artery is negative for stenosis. IMPRESSION: 1. Multiple bilateral renal cysts 2. Abnormal resistive indices bilaterally 3. There are two left renal arteries. There is hemodynamically significant stenosis in one of the two left renal arteries. The second is negative. 4. No right renal artery stenosis Interpreted and Authenticated by: Stephen Burrell 08/02/19
[2019-08-02] MEDS: SIMVASTATIN 10 MG TABLET PO SCH (21:49)
[2019-08-02] MEDS: BISOPROLOL 5 MG TABLET PO SCH (21:49)
[2019-08-02] MEDS: TERAZOSIN 1 MG CAPSULE PO SCH (21:49)
[2019-08-02] MEDS: SENNOSIDES/DOCUSATE SODIUM 1 TAB TABLET PO SCH (21:50)
[2019-08-03] MEDS: hydrALAZINE 20 MG/ML VIAL IV PRN (00:25)
[2019-08-03] MEDS ORDERED: amLODIPine 10 MG TABLET PO ONE (02:13)
[2019-08-03] MEDS ORDERED: amLODIPine 5 MG TABLET ONE (02:24)
[2019-08-03] MEDS: 0.9 % SODIUM CHLORIDE 10 ML SYRINGE IV SCH ×3 (05:46→20:59)
[2019-08-03 06:22] LABS: Hematocrit 29.5 % (36.0-48.0); Hemoglobin 9.2 g/dL (12.0-15.0); Mean Cell Volume 82.2 fL (80.0-100.0); Mean Corpuscular HGB Conc 31.3 g/dL (31.0-36.0); Mean Platelet Volume 7.1 fL (7.4-10.4); Platelet Count 332 K/mcL (140-440); RBC 3.58 M/mcL (4.00-5.20); Red Cell Distribution Width 19.1 % (11.5-14.5); WBC 12.4 K/mcL (4.5-11.0)
[2019-08-03 06:31] LABS: INR 3.9 (0.9-1.1); Prothrombin Time 37.5 sec (11.9-14.5)
[2019-08-03 06:42] LABS: ALT/SGPT 28 U/l (0-40); AST/SGOT 18 U/l (0-37); Albumin 3.1 gm/dL (3.2-5.2); Albumin/Globulin Ratio 1.5 (1.0-2.3); Alkaline Phosphatase 87 U/L (39-117); Bilirubin,Direct < 0.2 mg/dL (0.0-0.3); Bilirubin,Total < 0.2 mg/dL (0.0-1.0); Blood Urea Nitrogen 60 mg/dl (8-23); Carbon Dioxide 19 mmol/L (22-30); Chloride 105 mmol/L (96-108); Globulin 2.1 gm/dL (2.2-3.7); Glomerular Filtration Rate 17; Glucose 144 mg/dL (70-105); Lactate Dehydrogenase 203 U/L (94-250); Phosphorous 4.9 mg/dL (2.7-4.5); Triglycerides 135 mg/dl (<150); Uric Acid 7.7 mg/dL (2.5-8.0)
--- NOTE | 2019-08-03 07:02 | Nephrology Progress Note ---
Subjective Patient information: Note initiated : 08/03/19 at 6:59 am Patient: Leah Hong 84 y/o F admitted on 07/30/19 for Neuro defecit. Chief Complaint: Weakness Pertinent ROS: Weakness No edema No shortness of breath No confusion Fitzgerald catheter Objective - Vital Signs Vital signs: Vital Signs Temp Pulse Resp BP BP BP Pulse Ox 08/03/19 06:00 98.3 F 16 160/62 99 08/03/19 01:59 69 174/70 97 08/03/19 00:53 65 160/58 98 08/03/19 00:00 97.9 F 61 20 168/72 99 08/02/19 23:00 60 166/66 100 08/02/19 22:00 70 155/94 94 08/02/19 21:00 64 170/68 97 08/02/19 19:00 97.8 F 59 L 15 158/65 98 08/02/19 17:34 97.6 F 20 153/63 98 08/02/19 15:52 97.5 F 20 143/60 99 08/02/19 15:21 95 08/02/19 14:00 97.4 F 20 160/80 98 08/02/19 13:00 97.8 F 20 183/76 98 08/02/19 10:01 23 H 141/86 95 08/02/19 09:01 20 153/117 94 08/02/19 08:01 98.7 F 23 H 162/71 94 08/02/19 08:00 18 98 08/02/19 07:01 20 163/66 94 Intake and Output 08/02/19 08/03/19 08/03/19 21:59 05:59 13:59 Output Total 127 200 Balance -127 -200 Output: Urine Catheter Amount 127 200 Other: Urine Appearance Clear Clear Uretheral (Fitzgerald) Clear Urine Color Bright Yellow Uretheral (Fitzgerald) Dark Yellow Urine Odor Normal Uretheral (Fitzgerald) Normal Stool Size Moderate Stool Color Brown Black Stool Consistency Soft Formed # Bowel Movements 1 Weight 107 lb 8 oz Intake & Output: Intake & Output 08/02/19 08/03/19 08/03/19 21:59 05:59 13:59 Output Total 127 200 Balance -127 -200 Weight 107 lb 8 oz Output: Urine Catheter Amount 127 200 Other: Urine Appearance Clear Clear Uretheral (Fitzgerald) Clear Urine Color Bright Yellow Uretheral (Fitzgerald) Dark Yellow Urine Odor Normal Uretheral (Fitzgerald) Normal Stool Size Moderate Stool Color Brown Black Stool Consistency Soft Formed # Bowel Movements 1 - General Appearance General appearance: appears started age, fatigue EENT: mucous membranes moist Neck: supple Respiratory: clear Cardiology: no edema Gastrointestinal: no tenderness Integumentary: warm and dry Neurologic: no focal deficit Musculoskeletal: no deformities Psychiatric: mood/affect appropriate, cooperative - Lab 08/03/19 03:40 08/03/19 03:40 Most recent lab results Calcium 9.0 mg/dl (8.6-10.4) 08/03/19 03:40 Phosphorus 4.9 mg/dL (2.7-4.5) H 08/03/19 03:40 Magnesium 2.5 mg/dL (1.6-2.5) 08/03/19 03:40 Assessment and Plan (1) Acute on chronic renal failure Leah Hong is an 84-year-old female with coronary artery disease and peripheral vascular disease with extremely heavy atherosclerotic plaques s/p endarterectomies and grafts on Coumadin anticoagulation, hypertension, hyperlipidemia, hypothyroidism, chronic hypoxic hypercapnic respiratory failure due to chronic obstructive pulmonary disease, chronic kidney disease stage 3, history of CVA, admitted on 07/30/19. Acute kidney injury on chronic kidney disease stage 3 with initial hyperkalemia and metabolic acidosis, associated with sepsis, present on arrival. There is no recent history of IV contrast administration or NSAID use. Acute glomerulonephritis and acute interstitial nephritis considered. Work up: Urinalysis on 07/30/19: Straw, Clear, pH 7.0, SG 1.009, protein 100, occult blood 0.03, leukocyte esterase negative. Urine Sodium on 08/02/19: <20. Urine eosinophil smear on 08/02/19: TNP. Urine random total protein on 08/02/19: 151. Labs on 08/02/19: HBsAg non reactive, C3 Pending, MAZIN negative, ANCA screen Pending. US Renal on 07/30/19: Multiple renal cysts bilaterally. No hydronephrosis. Renal cortex appears somewhat thinned bilaterally. Renal cortex is echogenic consistent with medical renal disease. Progress: Encephalopathy, suspected hypertensive, resolved. Blood pressure: 160/62 Urine output: 1100+ ml reported in the past 24 hours. Serum creatinine decreased from 2.6 to 2.5 in the past 24 hours. Metabolic acidosis, worse. No fluid overload. Recommendations/Plan: No acute hemodialysis need. Avoid NSAIDs, LIO/ARB, nephrotoxic medications and IV contrast. Monitor BMP and urine output. Sodium Bicarbonate 650 mg PO TID for worsening metabolic acidosis. Chlorthalidone 25 mg daily and Amlodipine 10 mg PO QHS for uncontrolled hypertension. Status: Acute Priority: High Qualifiers: Acute renal failure type: unspecified Chronic kidney disease stage: stage 3 (moderate) Qualified Code(s): N17.9 - Acute kidney failure, unspecified; N18.3 - Chronic kidney disease, stage 3 (moderate) (2) Metabolic acidosis Please see above Status: Acute Priority: Medium (3) Hypertensive encephalopathy Please see above Status: Suspected Priority: High
[2019-08-03 07:26] LABS: Anisocytosis 1+ (NONE SEEN); Basophils % (Manual) 1 % (0-2); Hypochromasia 1+ (NONE SEEN); Lymphocytes % 5 % (15-49); Monocytes % (Manual) 3 % (1-12); Nucleated Red Blood Cells 1 % (0-0); Platelet Estimate NORMAL (NORMAL); Polychromasia 1+ (NONE SEEN); RBC Morphology ABNORM (NORMAL); Segmented Neutrophils % 91 % (38-78)
--- NOTE | 2019-08-03 08:05 | Internal Med Progress Note ---
Medical - PN: Subj Patient information: Note initiated : 08/03/19 at 8:00 am Service Date, if different from initiated Date: [] Patient: Leah Hong a 84 y/o F admitted on 07/30/19 for Neuro defecit. Chief Complaint: [] Interval history: Ms. 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 She also noted worsening confusion along with left-sided headache that started abruptly this morning. Symptoms persisted for a few hours and was associated with a fever of 101.8. She denies experiencing associated photophobia. She is hard of hearing. Most of the history was obtained from patient's . Initial work-up was consistent with acute pulmonary edema/chest infiltrates and sepsis with a white count 14.7 and creatinine 2.2. Hospitalist service was consulted in light of severe sepsis/acute renal failure and high probability encephalitis in the setting of fever and mental status change. LP could not performed due to elevated INR. Patient was empirically started on Rocephin/vancomycin/acyclovir given a history of herpes. At the time of my evaluation patient denies associated chest pain, diarrhea, dysuria or bloody stool. She endorses to weight loss. She is very hard of hearing and is extremely distressed sitting up on bed labored unable to talk in full sentences. 07/31-patient seen in room. Feeling a lot better. Improved white count down to 7000. Potassium 5.4 creatinine 2.2. Improved blood pressure control. Imp roving hypoxia. Mental status much improved. Family members at bedside. Case discussed with patient's daughter Casimiro and other family members. Continue close monitoring. 08/01-patient clinically improving however worsening white count of 12.7. Hemoglobin 9.3. INR 4. Patient complains of intermittent green and red spots in visual field. CT shows extensive ischemic past microvascular changes throughout the white matter. INR therapeutic. Potassium down from 5.4-5.1. Creatinine up from 2.2->2.6. If deteriorating renal function will consult nephrology. Blood pressure 140s to 160s systolic, start home medications except for ARB. Hydralazine 10 3 times daily. 08/02 -patient clinically feels better however persistent elevated white count of 13.8, creatinine 2.6. Nephrology on board. INR 4.5. Discontinue antibiotics in 24 hours. Nephrology optimizing antihypertensive management. No telemetry events or concerns per staff. Modified barium swallow completed. Or ST continue dysphagia level 6 diet and mildly thick liquids. Continue aspiration precautions. 08/03-white count downtrending. Overall feels a lot better. Blood pressure improved with addition of chlorthalidone/amlodipine per nephrology. Encephalopathy resolved. Denies headache or chest discomfort. Creatinine downtrending now 2.5. Hypoxia resolved now on room air. Pulmonary edema resolved. INR therapeutic. Anticipate discharge in 24 to 48 hours pending optimization of blood pressures and improvement renal failure - Constitutional Vitals: Vital Signs Temp Pulse Resp BP Pulse Ox 98.3 F 69 16 160/62 99 08/03/19 06:00 08/03/19 01:59 08/03/19 06:00 08/03/19 06:00 08/03/19 06:00 Period Temp Pulse Resp BP Sys/Newman Pulse Ox Last 24 Hr 97.4 F-98.7 F 59-70 15-23 141-183/58-117 94-100 Intake and Output 08/02/19 08/03/19 08/03/19 21:59 05:59 13:59 Output Total 127 200 Balance -127 -200 Weight 107 lb 8 oz Intake & Output: Intake & Output 08/02/19 08/03/19 08/03/19 21:59 05:59 13:59 Output Total 127 200 Balance -127 -200 Weight 107 lb 8 oz Output: Urine Catheter Amount 127 200 Other: Urine Appearance Clear Clear Uretheral (Fitzgerald) Clear Urine Color Bright Yellow Uretheral (Fitzgerald) Dark Yellow Urine Odor Normal Uretheral (Fitzgerald) Normal Stool Size Moderate Stool Color Brown Black Stool Consistency Soft Formed # Bowel Movements 1 General appearance: no acute distress Exam: Alert oriented Nonlabored breathing No anxiety No lymphedema Diminished breath sounds bases Medical - PN: Obj Da - Labs CBC & Chem 7: 08/03/19 03:40 08/03/19 03:40 Labs: Abnormal Lab Results 08/03/19 08/03/19 08/03/19 03:40 03:40 03:40 WBC 12.4 H RBC 3.58 L Hgb 9.2 L Hct 29.5 L MCH 25.8 L RDW 19.1 H MPV 7.1 L Seg Neutrophils % 91 H Lymphocytes % 5 L Nucleated RBCs 1 H RBC Morphology Abnorm A Polychromasia 1+ A Hypochromasia 1+ A Anisocytosis 1+ A Microcytosis ESR PT 37.5 H INR 3.9 H Carbon Dioxide 19 L BUN 60 H Creatinine 2.5 H Glucose 144 H Phosphorus 4.9 H Total Protein 5.2 L Albumin 3.1 L Globulin 2.1 L Triglycerides 08/02/19 08/02/19 08/02/19 03:40 03:40 03:40 WBC RBC Hgb Hct MCH RDW MPV Seg Neutrophils % Lymphocytes % Nucleated RBCs RBC Morphology Polychromasia Hypochromasia Anisocytosis Microcytosis ESR 21 H PT 40.8 H INR 4.3 H Carbon Dioxide 20 L BUN 55 H Creatinine 2.6 H Glucose 209 H Phosphorus 5.2 H Total Protein 5.3 L Albumin Globulin 2.1 L Triglycerides 151 H 08/02/19 08/01/19 08/01/19 03:40 03:40 03:40 WBC 13.8 H RBC 3.72 L Hgb 9.7 L Hct 30.6 L MCH RDW 19.4 H MPV 7.0 L Seg Neutrophils % 93 H Lymphocytes % 5 L Nucleated RBCs RBC Morphology Abnorm A Polychromasia 1+ A Hypochromasia 1+ A Anisocytosis 1+ A Microcytosis ESR PT 38.2 H INR 4.0 H Carbon Dioxide 21 L BUN 47 H Creatinine 2.6 H Glucose 166 H Phosphorus 6.5 H* Total Protein 5.3 L Albumin 3.1 L Globulin Triglycerides 08/01/19 07/31/19 07/31/19 03:40 10:11 03:30 WBC 12.7 H RBC 3.59 L Hgb 9.3 L Hct 29.3 L MCH 25.8 L RDW 18.6 H MPV 7.0 L Seg Neutrophils % 96 H 94 H Lymphocytes % 4 L 5 L Nucleated RBCs RBC Morphology Abnorm A Abnorm A Polychromasia Hypochromasia 1+ A Anisocytosis 1+ A 1+ A Microcytosis Few A ESR PT 29.9 H INR 2.9 H Carbon Dioxide BUN Creatinine Glucose Phosphorus Total Protein Albumin Globulin Triglycerides Meds: Medications Acetaminophen (Tylenol) 650 mg PO Q4-6HP PRN; Protocol PRN Reason: Per Pain Protocol/Fever > 101 Hydrocodone Bitart/Acetaminophen ([place] 5/325mg) 0 tab PO Q4HP PRN; Protocol PRN Reason: Per Pain Protocol Albuterol/Ipratropium (Duoneb) 3 ml NEB Q4HP PRN PRN Reason: Shortness Of Breath Or Wheezing Last Admin: 08/02/19 06:24 Dose: 3 ml Documented by: Amlodipine Besylate (Norvasc) 10 mg PO HS [facility] Bisacodyl (Dulcolax) 10 mg IN Q2-3DAYS PRN PRN Reason: Constipation Bisoprolol Fumarate (Zebeta) 2.5 mg PO HS [facility] Last Admin: 08/02/19 21:49 Dose: 2.5 mg Documented by: Chlorthalidone (Hygroton) 25 mg PO DAILY [facility] Cyanocobalamin (Vitamin B-12) 1,000 mcg PO BID [facility] Stop: 08/04/19 09:01 Last Admin: 08/02/19 21:50 Dose: 1,000 mcg Documented by: Digoxin (Lanoxin) 125 mcg PO DAILY@1400 [facility] Last Admin: 08/02/19 14:12 Dose: 125 mcg Documented by: Docusate Sodium (Colace) 100 mg PO BID [facility] Last Admin: 08/02/19 21:50 Dose: 100 mg Documented by: Hydralazine HCl (Apresoline) 10 mg IV Q4-6HP PRN PRN Reason: Hypertension Last Admin: 08/03/19 00:25 Dose: 10 mg Documented by: Hydralazine HCl (Apresoline) 10 mg PO TID [facility] Last Admin: 08/02/19 21:49 Dose: 10 mg Documented by: Acetaminophen (Ofirmev) 650 mg in 65 mls @ 130 mls/hr IV Q6HP PRN; Protocol PRN Reason: Per Pain Protocol/Fever > 101 Potassium Chloride 40 meq/ (Dextrose) 520 mls @ 130 mls/hr IV UD PRN PRN Reason: K+ = or < 3.5 Magnesium Sulfate (Magnesium Sulfate) 2 gm in 50 mls @ 50 mls/hr IV UD PRN PRN Reason: MG = or < 1.7 Ceftriaxone Sodium 2 gm/ (Dextrose) 50 mls @ 100 mls/hr IV Q24H [facility]; Protocol Last Infusion: 08/02/19 09:30 Dose: Infused Documented by: Iron Carb/Multivit/[place]/Folic Acid (Multivitamin W/Minerals) 1 tab PO DAILY [facility] Last Admin: 08/02/19 10:37 Dose: 1 tab Documented by: Levothyroxine Sodium (Synthroid) 75 mcg PO QAMAC [facility] Last Admin: 08/02/19 10:46 Dose: 75 mcg Documented by: Magnesium Hydroxide (Milk Of Magnesia) 30 ml PO HSP PRN PRN Reason: Constipation Melatonin (Melatonin 3mg Tablet) 3 mg PO HSP PRN PRN Reason: Insomnia Last Admin: 08/01/19 02:07 Dose: 3 mg Documented by: Methylprednisolone Sodium Succinate (Solu-Medrol) 60 mg IV Q12 [facility] Last Admin: 08/02/19 21:50 Dose: 60 mg Documented by: Metoprolol Tartrate (Lopressor) 5 mg IV Q5M PRN PRN Reason: Heart Rate > 140 bpm Metoprolol Tartrate (Lopressor) 25 mg PO BID [facility] Last Admin: 08/02/19 21:49 Dose: 25 mg Documented by: Ondansetron HCl (Zofran Odt) 4 mg SL Q4-6HP PRN; Protocol PRN Reason: Nausea And Vomiting Ondansetron HCl (Zofran) 4 mg IV Q4-6HP PRN; Protocol PRN Reason: Nausea And Vomiting Oxycodone HCl (Roxicodone) 5 mg PO Q6HP PRN; Protocol PRN Reason: Pain Polyethylene Glycol (Miralax) 17 gm PO DAILYP PRN PRN Reason: Constipation Potassium Chloride (Klor-Con) 40 meq PO DAILYP PRN PRN Reason: K+ < 3.5 Senna/Docusate Sodium (Senna Plus Tablet) 1 tab PO HS [facility] Last Admin: 08/02/19 21:50 Dose: 1 tab Documented by: Simvastatin (Zocor) 10 mg PO HS [facility] Last Admin: 08/02/19 21:49 Dose: 10 mg Documented by: Sodium Bicarbonate (Sodium Bicarbonate) 650 mg PO TID [facility] Sodium Chloride (Saline Flush) 10 ml IV Q8 [facility] Last Admin: 08/03/19 05:46 Dose: 10 ml Documented by: Spironolactone (Aldactone) 12.5 mg PO DAILY [facility] Last Admin: 08/02/19 10:38 Dose: 12.5 mg Documented by: Terazosin HCl (Hytrin) 1 mg PO [facility] Last Admin: 08/02/19 21:49 Dose: 1 mg Documented by: Warfarin Sodium (Coumadin Per Pharmacy) 1 order PO [facility] Medical - PN: A/P - Time Spent With Patient Total time spent is greater than 50% in coordination of care (as documented) at patient's floor/unit and/or counseling patient: 25 - 35 minutes (1) Sepsis with acute hypoxic respiratory failure Status: Acute Assessment and plan: * Acute renal failure-creatinine baseline 1 currently at 2.2->2.6-2.5. Managed by nephrology. * Accelerated hypertension -clinically improving with management per nephrology. On chlorthalidone/amlodipine * Acute respiratory failure with hypoxia -clinically resolved now on room air * Acute pulmonary edema secondary to hypertensive crisis, clinically resolved * Hypertensive encephalopathy-Clinically resolved * COPD exacerbation resolved with bronchodilator steroids and continued oxygen * Elevated LFTs - resolved * Severe protein calorie malnutrition. Continue aggressive dietary intervention per dietitian * Dysphagia continue diet per ST recommendations. Completed modified barium swallow. On diet per ST recommendations * Anticoagulation on Coumadin. INR 3.9 * Tobacco dependence continue nicotine patch * Full code * Prophylaxis * INR therapeutic Plan * Discontinue antibiotics * Continue hypertension/renal failure management per nephrology * PT OT/nutrition support * Dysphagia diet as per ST * Coumadin dosing based on INR * Discharge planning per case management possibly in 24 to 48 hours pending renal function improvement Current Visit: Yes Medical - PN: Qual - Stroke Onset of Symptoms Date: 07/30/19 Onset of Symptoms Time: 08:00 Symptom Onset Unknown: No - VTE Deep Vein Thrombosis/Pulmonary Embolism Present on Admission: No
[2019-08-03] MEDS: cefTRIAXone 2 GM in DEXTROSE 5% IN WATER 50 ML IV SCH (08:37)
[2019-08-03] MEDS: LEVOTHYROXINE 75 MCG TABLET PO SCH (08:42)
[2019-08-03] MEDS: SODIUM BICARBONATE 650 MG TABLET PO SCH ×3 (08:42→20:58)
[2019-08-03] MEDS: MULTIVIT,THER IRON,CA,FA & MIN 1 TABLET PO SCH (08:42)
[2019-08-03] MEDS: hydrALAZINE 10 MG TABLET PO SCH ×3 (08:42→20:58)
[2019-08-03] MEDS: METOPROLOL TARTRATE 25 MG TABLET PO SCH ×2 (08:42→20:59)
[2019-08-03] MEDS: CYANOCOBALAMIN (VITAMIN B-12) 500 MCG TABLET PO SCH ×2 (08:43→20:57)
[2019-08-03] MEDS: methylPREDNISolone SOD SUCC 125 MG/2 ML VIAL IV SCH ×2 (08:43→20:58)
[2019-08-03] MEDS: SPIRONOLACTONE 25 MG TABLET PO SCH (08:43)
[2019-08-03] MEDS ORDERED: CHLORTHALIDONE 25 MG TABLET PO SCH (09:00)
[2019-08-03] MEDS: DOCUSATE SODIUM 100 MG CAPSULE PO SCH ×2 (09:12→20:56)
[2019-08-03] MEDS: IPRATROPIUM/ALBUTEROL 3 ML AMPUL.NEB NEB PRN ×3 (09:39→21:28)
[2019-08-03] MEDS: DIGOXIN 125 MCG TABLET PO SCH (14:10)
[2019-08-03] MEDS: MELATONIN 3 MG TABLET PO PRN (20:56)
[2019-08-03] MEDS: SENNOSIDES/DOCUSATE SODIUM 1 TAB TABLET PO SCH (20:56)
[2019-08-03] MEDS: SIMVASTATIN 10 MG TABLET PO SCH (20:57)
[2019-08-03] MEDS: BISOPROLOL 5 MG TABLET PO SCH (20:59)
[2019-08-03] MEDS: TERAZOSIN 1 MG CAPSULE PO SCH (20:59)
[2019-08-03] MEDS ORDERED: amLODIPine 10 MG TABLET PO SCH (21:00)
[2019-08-03] MEDS ORDERED: ACETAMINOPHEN 325 MG TABLET PO PRN (23:00)
[2019-08-03] MEDS ORDERED: HYDROcodone/APAP 5/325MG TABLET PO PRN (23:00)
[2019-08-03] MEDS ORDERED: POTASSIUM CHLORIDE 40 MEQ in DEXTROSE 5% IN WATER 500 ML IV PRN (23:00)
[2019-08-03] MEDS ORDERED: POTASSIUM CHLORIDE 20 MEQ PACKET PO PRN (23:00)
[2019-08-03] MEDS ORDERED: hydrALAZINE 20 MG/ML VIAL IV PRN (23:00)
[2019-08-03] MEDS ORDERED: MAGNESIUM SULFATE 2 GM/50 ML BAG IV PRN (23:00)
[2019-08-03] MEDS ORDERED: POLYETHYLENE GLYCOL 3350 17 GM PACKET PO PRN (23:00)
[2019-08-03] MEDS ORDERED: MELATONIN 3 MG TABLET PO PRN (23:00)
[2019-08-03] MEDS ORDERED: ACETAMINOPHEN 650 MG/65 ML BOTTLE IV PRN (23:00)
[2019-08-03] MEDS ORDERED: MAGNESIUM HYDROXIDE 30 ML ORAL.SUSP PO PRN (23:00)
[2019-08-03] MEDS ORDERED: ONDANSETRON 4 MG/2 ML VIAL IV PRN (23:00)
[2019-08-03] MEDS ORDERED: oxyCODONE HCL 5 MG TABLET PO PRN (23:00)
[2019-08-03] MEDS ORDERED: ONDANSETRON 4 MG ODT TABLET SL PRN (23:00)
[2019-08-03] MEDS ORDERED: BISACODYL 10 MG SUPP.RECT PR PRN (23:00)
[2019-08-03] MEDS ORDERED: METOPROLOL TARTRATE 5 MG/5 ML VIAL IV PRN (23:00)
[2019-08-04] MEDS: 0.9 % SODIUM CHLORIDE 10 ML SYRINGE IV SCH ×3 (04:48→21:07)
[2019-08-04 06:18] LABS: Hematocrit 31.6 % (36.0-48.0); Hemoglobin 9.9 g/dL (12.0-15.0); Mean Cell Volume 82.7 fL (80.0-100.0); Mean Corpuscular HGB Conc 31.2 g/dL (31.0-36.0); Mean Platelet Volume 7.2 fL (7.4-10.4); Platelet Count 393 K/mcL (140-440); RBC 3.82 M/mcL (4.00-5.20); Red Cell Distribution Width 18.6 % (11.5-14.5); WBC 16.3 K/mcL (4.5-11.0)
[2019-08-04 06:39] LABS: INR 2.8 (0.9-1.1); Prothrombin Time 29.2 sec (11.9-14.5)
[2019-08-04 06:49] LABS: ALT/SGPT 28 U/l (0-40); AST/SGOT 17 U/l (0-37); Albumin 3.8 gm/dL (3.2-5.2); Albumin/Globulin Ratio 1.8 (1.0-2.3); Alkaline Phosphatase 90 U/L (39-117); Bilirubin,Direct < 0.2 mg/dL (0.0-0.3); Bilirubin,Total < 0.2 mg/dL (0.0-1.0); Blood Urea Nitrogen 70 mg/dl (8-23); Calcium 9.5 mg/dl (8.6-10.4); Chloride 106 mmol/L (96-108); Globulin 2.1 gm/dL (2.2-3.7); Glomerular Filtration Rate 18; Glucose 155 mg/dL (70-105); Lactate Dehydrogenase 241 U/L (94-250); Phosphorous 4.2 mg/dL (2.7-4.5); Triglycerides 154 mg/dl (<150); Uric Acid 7.6 mg/dL (2.5-8.0)
[2019-08-04 06:51] LABS: Carbon Dioxide 24 mmol/L (22-30)
--- NOTE | 2019-08-04 07:43 | Nephrology Progress Note ---
Subjective Patient information: Note initiated : 08/04/19 at 7:41 am Patient: Leah Hong 84 y/o F admitted on 07/30/19 for Neuro defecit. Chief Complaint: Weakness Pertinent ROS: Weakness reports significant improvement but not baseline yet Dysphagia, does not like thickened fluids Objective - Vital Signs Vital signs: Vital Signs Temp Pulse Pulse Pulse Resp BP BP 08/04/19 07:31 97.6 F 20 L 73 20 180/81 08/04/19 03:00 97.7 F 87 12 171/73 08/04/19 00:00 98 F 86 18 156/72 08/03/19 21:30 90 20 08/03/19 19:40 96 H 08/03/19 19:16 99.4 F H 88 20 165/66 08/03/19 15:42 99.2 F H 20 174/64 08/03/19 14:39 84 20 08/03/19 14:35 83 20 08/03/19 14:00 08/03/19 11:41 97.2 F 20 156/95 08/03/19 09:39 71 15 08/03/19 08:00 98 F 20 160/60 Pulse Ox 08/04/19 07:31 95 08/04/19 03:00 94 08/04/19 00:00 96 08/03/19 21:30 08/03/19 19:40 97 08/03/19 19:16 97 08/03/19 15:42 94 08/03/19 14:39 99 08/03/19 14:35 08/03/19 14:00 94 08/03/19 11:41 98 08/03/19 09:39 97 08/03/19 08:00 93 Intake and Output 08/03/19 08/04/19 08/04/19 21:59 05:59 13:59 Intake Total 120 Output Total 450 225 Balance -330 -225 Intake: Oral 120 Output: Urine Catheter Amount 450 Void Amount 225 Other: Urine Appearance Clear Clear Uretheral (Fitzgerald) Clear Urine Color Bright Yellow Bright Yellow Uretheral (Fitzgerald) Bright Yellow Bright Yellow Urine Odor Normal Stool Size Moderate Stool Color Brown Stool Consistency Normal for Patient Weight 107 lb 8 oz Intake & Output: Intake & Output 08/03/19 08/04/19 08/04/19 21:59 05:59 13:59 Intake Total 120 Output Total 450 225 Balance -330 -225 Weight 107 lb 8 oz Intake: Oral 120 Output: Urine Catheter Amount 450 Void Amount 225 Other: Urine Appearance Clear Clear Uretheral (Fitzgerald) Clear Urine Color Bright Yellow Bright Yellow Uretheral (Fitzgerald) Bright Yellow Bright Yellow Urine Odor Normal Stool Size Moderate Stool Color Brown Stool Consistency Normal for Patient - General Appearance General appearance: appears started age, fatigue EENT: mucous membranes moist Neck: supple Respiratory: clear Cardiology: no edema Gastrointestinal: no tenderness Neurologic: no focal deficit Musculoskeletal: no deformities Psychiatric: mood/affect appropriate, cooperative - Lab 08/04/19 04:40 08/04/19 04:40 Most recent lab results Calcium 9.5 mg/dl (8.6-10.4) 08/04/19 04:40 Phosphorus 4.2 mg/dL (2.7-4.5) 08/04/19 04:40 Magnesium 2.5 mg/dL (1.6-2.5) 08/04/19 04:40 Assessment and Plan (1) Acute on chronic renal failure Leah Hong is an 84-year-old female with coronary artery disease and peripheral vascular disease with extremely heavy atherosclerotic plaques s/p endarterectomies and grafts on Coumadin anticoagulation, hypertension, h yperlipidemia, hypothyroidism, chronic hypoxic hypercapnic respiratory failure due to chronic obstructive pulmonary disease, chronic kidney disease stage 3 (baseline eGFR 50-60), history of CVA, admitted on 07/30/19 for acute neurologic change. Acute kidney injury on chronic kidney disease stage 3 with initial hyperkalemia and metabolic acidosis, associated with sepsis, present on arrival. There is no recent history of IV contrast administration or NSAID use. Acute glomerulonephritis and acute interstitial nephritis considered. Work up: Urinalysis on 07/30/19: Straw, Clear, pH 7.0, SG 1.009, protein 100, occult blood 0.03, leukocyte esterase negative. Urine Sodium on 08/02/19: <20. Urine eosinophil smear on 08/02/19: TNP. Urine random total protein on 08/02/19: 151. Labs on 08/02/19: HBsAg non reactive, MAZIN negative, ANCA screen pending. US Renal on 07/30/19: Multiple renal cysts bilaterally. No hydronephrosis. Renal cortex appears somewhat thinned bilaterally. Renal cortex is echogenic consistent with medical renal disease. US Renal Doppler on 08/02/19: Multiple bilateral renal cysts. Abnormal resistive indices bilaterally. There are two left renal arteries. There is hemodynamically significant stenosis in one of the two left renal arteries. The second is negative. No right renal artery stenosis Progress: Encephalopathy, suspected hypertensive, improved. Hypertensive emergency, suspected renovascular hypertension, improved. Blood pressure: 180/81 Urine output: 861 ml reported in the past 24 hours. Serum creatinine decreased from 2.5 to 2.4 in the past 24 hours. Metabolic acidosis, resolved. No fluid overload. Recommendations/Plan: No acute hemodialysis need. No urgent renal artery stenosis workup or procedures. Avoid NSAIDs, nephrotoxic medications and IV contrast. Monitor BMP and urine output. Sodium Bicarbonate 650 mg PO TID discontinued. LIO/ARB would be needed for hypertension. I prefer to hold it for a little longer. Outpatient nephrology follow up in [address] Chan at discharge. Status: Acute Priority: High Qualifiers: Acute renal failure type: unspecified Chronic kidney disease stage: stage 3 (moderate) Qualified Code(s): N17.9 - Acute kidney failure, unspecified; N18.3 - Chronic kidney disease, stage 3 (moderate) (2) Hypertensive encephalopathy Please see above Status: Suspected Priority: High (3) Hypertensive emergency without congestive heart failure Please see above Status: Suspected Priority: High (4) Metabolic acidosis Please see above Status: Resolved Priority: Medium
[2019-08-04 08:02] LABS: Anisocytosis 1+ (NONE SEEN); Hypochromasia 1+ (NONE SEEN); Lymphocytes % 2 % (15-49); Monocytes % (Manual) 3 % (1-12); Platelet Estimate NORMAL (NORMAL); RBC Morphology ABNORM (NORMAL); Segmented Neutrophils % 95 % (38-78)
[2019-08-04] MEDS: LEVOTHYROXINE 75 MCG TABLET PO SCH (08:09)
[2019-08-04] MEDS: METOPROLOL TARTRATE 25 MG TABLET PO SCH ×2 (08:09→21:06)
[2019-08-04] MEDS: SPIRONOLACTONE 25 MG TABLET PO SCH (08:10)
[2019-08-04] MEDS: CHLORTHALIDONE 25 MG TABLET PO SCH (08:10)
[2019-08-04] MEDS: amLODIPine 10 MG TABLET PO SCH (08:10)
[2019-08-04] MEDS: hydrALAZINE 10 MG TABLET PO SCH ×3 (08:10→21:06)
[2019-08-04] MEDS: MULTIVIT,THER IRON,CA,FA & MIN 1 TABLET PO SCH (08:10)
[2019-08-04] MEDS: DOCUSATE SODIUM 100 MG CAPSULE PO SCH ×2 (08:10→21:07)
[2019-08-04] MEDS: methylPREDNISolone SOD SUCC 125 MG/2 ML VIAL IV SCH ×2 (08:14→21:04)
[2019-08-04] MEDS ORDERED: SODIUM BICARBONATE 650 MG TABLET PO SCH (09:00)
[2019-08-04] MEDS ORDERED: CYANOCOBALAMIN (VITAMIN B-12) 500 MCG TABLET PO SCH (09:00)
--- NOTE | 2019-08-04 10:12 | Internal Med Progress Note ---
Medical - PN: Subj Patient information: Note initiated : 08/04/19 at 10:10 am Service Date, if different from initiated Date: [] Patient: Leah Hong a 84 y/o F admitted on 07/30/19 for Neuro defecit. Chief Complaint: [] Interval history: Ms. 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 She also noted worsening confusion along with left-sided headache that started abruptly this morning. Symptoms persisted for a few hours and was associated with a fever of 101.8. She denies experiencing associated photophobia. She is hard of hearing. Most of the history was obtained from patient's . Initial work-up was consistent with acute pulmonary edema/chest infiltrates and sepsis with a white count 14.7 and creatinine 2.2. Hospitalist service was consulted in light of severe sepsis/acute renal failure and high probability encephalitis in the setting of fever and mental status change. LP could not performed due to elevated INR. Patient was empirically started on Rocephin/vancomycin/acyclovir given a history of herpes. At the time of my evaluation patient denies associated chest pain, diarrhea, dysuria or bloody stool. She endorses to weight loss. She is very hard of hearing and is extremely distressed sitting up on bed labored unable to talk in full sentences. 07/31-patient seen in room. Feeling a lot better. Improved white count down to 7000. Potassium 5.4 creatinine 2.2. Improved blood pressure control. Improving hypoxia. Mental status much improved. Family members at bedside. Case discussed with patient's daughter Casimiro and other family members. Continue close monitoring. 08/01-patient clinically improving however worsening white count of 12.7. Hemoglobin 9.3. INR 4. Patient complains of intermittent green and red spots in visual field. CT shows extensive ischemic past microvascular changes throughout the white matter. INR therapeutic. Potassium down from 5.4-5.1. Creatinine up from 2.2->2.6. If deteriorating renal function will consult nephrology. Blood pressure 140s to 160s systolic, start home medications except for ARB. Hydralazine 10 3 times daily. 08/02 -patient clinically feels better however persistent elevated white count of 13.8, creatinine 2.6. Nephrology on board. INR 4.5. Discontinue antibiotics in 24 hours. Nephrology optimizing antihypertensive management. No telemetry events or concerns per staff. Modified barium swallow completed. Or ST continue dysphagia level 6 diet and mildly thick liquids. Continue aspiration precautions. 08/03-white count downtrending. Overall feels a lot better. Blood pressure improved with addition of chlorthalidone/amlodipine per nephrology. Encephalopathy resolved. Denies headache or chest discomfort. Creatinine downtrending now 2.5. Hypoxia resolved now on room air. Pulmonary edema resolved. INR therapeutic. Anticipate discharge in 24 to 48 hours pending optimization of blood pressures and improvement renal failure 08/04-patient mental status improving, nephrology evaluated the patient and recommended outpatient follow-up no need for acute intervention creatinine improving anticipating discharge in next 1 to 2 days, encourage patient to ambulate and take out the Fitzgerald catheter, ordered UA she was having leukocytosis probably due to steroids. Will taper the steroids to p.o. tomorrow Pertinent ROS: General-denied any distress CVS denies any chest pain palpitations Respiratory-denied any shortness of breath-chest discomfort improved Abdomen-no tenderness no pain Neuro-confusion improving Musculoskeletal denies any pain or joint changes - Constitutional Vitals: Vital Signs Temp Pulse Resp BP Pulse Ox 97.6 F 20 L 20 180/81 95 08/04/19 07:31 08/04/19 07:31 08/04/19 07:31 08/04/19 07:31 08/04/19 07:31 Period Temp Pulse Resp BP Sys/Newman Pulse Ox Last 24 Hr 97.2 F-99.4 F 20-96 12- 156-180/64-95 94-99 Intake and Output 08/03/19 08/04/19 08/04/19 21:59 05:59 13:59 Intake Total 120 240 Output Total 450 225 400 Balance -330 -225 -160 Weight 107 lb 8 oz Intake & Output: Intake & Output 08/03/19 08/04/19 08/04/19 21:59 05:59 13:59 Intake Total 120 240 Output Total 450 225 400 Balance -330 -225 -160 Weight 107 lb 8 oz Intake: Oral 120 240 Output: Urine Catheter Amount 450 400 Void Amount 225 Other: Meal Breakfast Percent of Meal Consumed 100% Feeding Ability Assist with Tray Set Up Urine Appearance Clear Clear Clear Uretheral (Fitzgerald) Clear Urine Color Bright Yellow Bright Yellow Dark Yellow Uretheral (Fitzgerald) Bright Yellow Bright Yellow Urine Odor Normal Normal Stool Size Moderate Small Stool Color Brown Brown Stool Consistency Normal for Patient Soft # Bowel Movements 1 General appearance: cooperative, mild distress - Head Head exam: Present: atraumatic, normal inspection - Eye Eye exam: Present: normal appearance. Absent: periorbital tenderness - ENT ENT exam: Present: mucous membranes dry, normal exam - Neck Neck exam: Present: full ROM, normal inspection. Absent: lymphadenopathy, meningismus - Respiratory Respiratory exam: Present: accessory muscle use, wheezes - Cardiovascular Cardiovascular exam: Present: normal rate and rhythm. Absent: bradycardia, irregular rhythm - GI/Abdominal GI/Abdominal exam: Present: normal bowel sounds, soft. Absent: bruit - Neurological Exam Neurological exam: Present: abnormal gait, alert, oriented X3, reflexes normal. Absent: altered, motor sensory deficit Medical - PN: Obj Da - Labs CBC & Chem 7: 08/04/19 04:40 08/04/19 04:40 Labs: Abnormal Lab Results 08/04/19 08/04/19 08/04/19 04:40 04:40 04:40 WBC 16.3 H RBC 3.82 L Hgb 9.9 L Hct 31.6 L MCH 25.8 L RDW 18.6 H MPV 7.2 L Seg Neutrophils % 95 H Lymphocytes % 2 L Nucleated RBCs RBC Morphology Abnorm A Polychromasia Hypochromasia 1+ A Anisocytosis 1+ A ESR PT 29.2 H INR 2.8 H Carbon Dioxide BUN 70 H Creatinine 2.4 H Glucose 155 H Phosphorus Total Protein Albumin Globulin 2.1 L Triglycerides 154 H 08/03/19 08/03/19 08/03/19 03:40 03:40 03:40 WBC 12.4 H RBC 3.58 L Hgb 9.2 L Hct 29.5 L MCH 25.8 L RDW 19.1 H MPV 7.1 L Seg Neutrophils % 91 H Lymphocytes % 5 L Nucleated RBCs 1 H RBC Morphology Abnorm A Polychromasia 1+ A Hypochromasia 1+ A Anisocytosis 1+ A ESR PT 37.5 H INR 3.9 H Carbon Dioxide 19 L BUN 60 H Creatinine 2.5 H Glucose 144 H Phosphorus 4.9 H Total Protein 5.2 L Albumin 3.1 L Globulin 2.1 L Triglycerides 08/02/19 08/02/19 08/02/19 03:40 03:40 03:40 WBC RBC Hgb Hct MCH RDW MPV Seg Neutrophils % Lymphocytes % Nucleated RBCs RBC Morphology Polychromasia Hypochromasia Anisocytosis ESR 21 H PT 40.8 H INR 4.3 H Carbon Dioxide 20 L BUN 55 H Creatinine 2.6 H Glucose 209 H Phosphorus 5.2 H Total Protein 5.3 L Albumin Globulin 2.1 L Triglycerides 151 H 08/02/19 03:40 WBC 13.8 H RBC 3.72 L Hgb 9.7 L Hct 30.6 L MCH RDW 19.4 H MPV 7.0 L Seg Neutrophils % 93 H Lymphocytes % 5 L Nucleated RBCs RBC Morphology Abnorm A Polychromasia 1+ A Hypochromasia 1+ A Anisocytosis 1+ A ESR PT INR Carbon Dioxide BUN Creatinine Glucose Phosphorus Total Protein Albumin Globulin Triglycerides Meds: Medications Acetaminophen (Tylenol) 650 mg PO Q4-6HP PRN; Protocol PRN Reason: Per Pain Protocol/Fever > 101 Hydrocodone Bitart/Acetaminophen ([place] 5/325mg) 0 tab PO Q4HP PRN; Protocol PRN Reason: Per Pain Protocol Albuterol/Ipratropium (Duoneb) 3 ml NEB Q4HP PRN PRN Reason: Shortness Of Breath Or Wheezing Amlodipine Besylate (Norvasc) 10 mg PO DAILY [facility] Last Admin: 08/04/19 08:10 Dose: 10 mg Documented by: Bisacodyl (Dulcolax) 10 mg NC Q2-3DAYS PRN PRN Reason: Constipation Bisoprolol Fumarate (Zebeta) 2.5 mg PO [facility] Chlorthalidone (Hygroton) 25 mg PO DAILY [facility] Last Admin: 08/04/19 08:10 Dose: 25 mg Documented by: Digoxin (Lanoxin) 125 mcg PO DAILY@1400 [facility] Docusate Sodium (Colace) 100 mg PO BID [facility] Last Admin: 08/04/19 08:10 Dose: Not Given Documented by: Hydralazine HCl (Apresoline) 10 mg IV Q4-6HP PRN PRN Reason: Hypertension Hydralazine HCl (Apresoline) 10 mg PO TID [facility] Last Admin: 08/04/19 08:10 Dose: 10 mg Documented by: Potassium Chloride 40 meq/ (Dextrose) 520 mls @ 130 mls/hr IV UD PRN PRN Reason: K+ = or < 3.5 Magnesium Sulfate (Magnesium Sulfate) 2 gm in 50 mls @ 50 mls/hr IV UD PRN PRN Reason: MG = or < 1.7 Acetaminophen (Ofirmev) 650 mg in 65 mls @ 130 mls/hr IV Q6HP PRN; Protocol PRN Reason: Per Pain Protocol/Fever > 101 Iron Carb/Multivit/[place]/Folic Acid (Multivitamin W/Minerals) 1 tab PO DAILY [facility] Last Admin: 08/04/19 08:10 Dose: 1 tab Documented by: Levothyroxine Sodium (Synthroid) 75 mcg PO QAMAC [facility] Last Admin: 08/04/19 08:09 Dose: 75 mcg Documented by: Magnesium Hydroxide (Milk Of Magnesia) 30 ml PO HSP PRN PRN Reason: Constipation Melatonin (Melatonin 3mg Tablet) 3 mg PO HSP PRN PRN Reason: Insomnia Methylprednisolone Sodium Succinate (Solu-Medrol) 60 mg IV Q12 [facility] Last Admin: 08/04/19 08:14 Dose: 60 mg Documented by: Metoprolol Tartrate (Lopressor) 5 mg IV Q5M PRN PRN Reason: Heart Rate > 140 bpm Metoprolol Tartrate (Lopressor) 25 mg PO BID [facility] Last Admin: 08/04/19 08:09 Dose: 25 mg Documented by: Ondansetron HCl (Zofran Odt) 4 mg SL Q4-6HP PRN; Protocol PRN Reason: Nausea And Vomiting Ondansetron HCl (Zofran) 4 mg IV Q4-6HP PRN; Protocol PRN Reason: Nausea And Vomiting Oxycodone HCl (Roxicodone) 5 mg PO Q6HP PRN; Protocol PRN Reason: Pain Polyethylene Glycol (Miralax) 17 gm PO DAILYP PRN PRN Reason: Constipation Potassium Chloride (Klor-Con) 40 meq PO DAILYP PRN PRN Reason: K+ < 3.5 Senna/Docusate Sodium (Senna Plus Tablet) 1 tab PO HS STEFAN Simvastatin (Zocor) 10 mg PO HS [facility] Sodium Chloride (Saline Flush) 10 ml IV Q8 [facility] Last Admin: 08/04/19 04:48 Dose: 10 ml Documented by: Spironolactone (Aldactone) 12.5 mg PO DAILY [facility] Last Admin: 08/04/19 08:10 Dose: 12.5 mg Documented by: Terazosin HCl (Hytrin) 1 mg PO [facility] Warfarin Sodium (Coumadin Per Pharmacy) 1 order PO UD [facility] Medical - PN: A/P - Time Spent With Patient Total time spent is greater than 50% in coordination of care (as documented) at patient's floor/unit and/or counseling patient: - Narrative A/P Narrative: Acute renal failure on CKD Creatinine started trending down 2.4 today Nephrology following recommended outpatient follow-up no need for dialysis Holding ARB and LIO inhibitor Blood pressure improving Acute encephalopathy probably hypertensive and metabolic due to underlying renal failure, COPD exacerbation Initially concern for encephalitis but since she improved antibiotics were stopped Unable to perform LP upon admission due to hypercoagulable state Elevated leukocytosis probably due to steroids COPD exacerbation Continuing Solu-Medrol Continue duo nebs Mental status and overall functionality improving Hypercoagulable state due to Coumadin INR remains elevated We will monitor no evidence of any bleeding Dysphagia Diet per speech therapy recommendations Completed modified barium swallow Acute pulmonary edema secondary to hypertensive emergency Acute hypoxic respiratory failure Improved Blood pressure better controlled Need further titration DVT prophylaxis - on Coumadin CODE STATUS-full code Medical - PN: Qual - Stroke Onset of Symptoms Date: 07/30/19 Onset of Symptoms Time: 08:00 Symptom Onset Unknown: No - VTE Deep Vein Thrombosis/Pulmonary Embolism Present on Admission: No
[2019-08-04] MEDS ORDERED: WARFARIN 3 MG TABLET PO ONE (14:00)
[2019-08-04] MEDS: DIGOXIN 125 MCG TABLET PO SCH (14:34)
[2019-08-04 15:00] LABS: Appearance,Urine CLEAR; Bacteria,Urine 0 /hpf (0); Bilirubin,Urine NEG (NEG); Color,Urine YELLOW; Culture Indicated,Urine NO; Glucose,Urine (UA) 50 mg/dL (NEG); Ketones,Urine NEG (NEG); Leukocyte Esterase,Urine NEG /uL (NEG); Nitrate,Urine NEG (NEG); Protein,Urine 100 mg/dL (NEG); Specific Gravity,Urine 1.014 (1.000-1.035); Urine Blood 0.03 mg/dL (<0.03); Urine Hyaline Cast 2 /lpf (0-2); Urine RBC 38 /hpf (0-1); Urine Squamous Epithelial Cell < 1 /hpf (0-4); Urine Transitional Epi Cells < 1 /hpf (0-2); Urine WBC 2 /hpf (0-4); Urobilinogen,Urine NEG (NEG)
[2019-08-04] MEDS: IPRATROPIUM/ALBUTEROL 3 ML AMPUL.NEB NEB PRN ×2 (15:46→21:45)
[2019-08-04] MEDS ORDERED: SENNOSIDES/DOCUSATE SODIUM 1 TAB TABLET PO SCH (21:00)
[2019-08-04] MEDS ORDERED: TERAZOSIN 1 MG CAPSULE PO SCH (21:00)
[2019-08-04] MEDS ORDERED: amLODIPine 10 MG TABLET PO SCH (21:00)
[2019-08-04] MEDS ORDERED: BISOPROLOL 5 MG TABLET PO SCH (21:00)
[2019-08-04] MEDS ORDERED: SIMVASTATIN 10 MG TABLET PO SCH (21:00)
[2019-08-05] MEDS: 0.9 % SODIUM CHLORIDE 10 ML SYRINGE IV SCH ×2 (04:03→15:03)
--- NOTE | 2019-08-05 07:48 | Nephrology Progress Note ---
Subjective Patient information: Note initiated : 08/05/19 at 7:46 am Patient: Leah Hong 84 y/o F admitted on 07/30/19 for Neuro deficit. Chief Complaint: Weakness Pertinent ROS: Weakness No headache No confusion Fitzgerald removed Objective - Vital Signs Vital signs: Vital Signs Temp Pulse Pulse Resp BP BP Pulse Ox 08/05/19 07:23 97.9 F 92 H 20 179/83 96 08/05/19 03:55 98.4 F 91 H 18 154/81 94 08/04/19 23:33 98.1 F 85 20 146/78 94 08/04/19 21:47 91 H 20 08/04/19 18:47 99.2 F H 92 H 22 157/74 94 08/04/19 15:46 74 14 95 08/04/19 15:43 98.1 F 89 16 138/62 93 08/04/19 12:00 97.8 F 83 16 174/77 92 Intake and Output 08/04/19 08/05/19 08/05/19 21:59 05:59 13:59 Intake Total 620 20 Output Total 225 Balance 395 20 Intake: Nourishment/Supplement quantity 120 (ml) Oral 500 20 Output: Urine Catheter Amount 225 Other: Meal Dinner Percent of Meal Consumed 50% Feeding Ability Assist with Tray Set Up Nourishment/Supplement name ensure Urine Appearance Clear Clear Urine Color Bright Yellow Bright Yellow Stool Size Moderate Moderate Stool Color Brown Brown Green Stool Consistency Soft Formed # Voids 1 1 1 # Bowel Movements 1 1 Weight 111 lb Intake & Output: Intake & Output 08/04/19 08/05/19 08/05/19 21:59 05:59 13:59 Intake Total 620 20 Output Total 225 Balance 395 20 Weight 111 lb Intake: Nourishment/Supplement quantity 120 (ml) Oral 500 20 Output: Urine Catheter Amount 225 Other: Meal Dinner Percent of Meal Consumed 50% Feeding Ability Assist with Tray Set Up Nourishment/Supplement name ensure Urine Appearance Clear Clear Urine Color Bright Yellow Bright Yellow Stool Size Moderate Moderate Stool Color Brown Brown Green Stool Consistency Soft Formed # Voids 1 1 1 # Bowel Movements 1 1 - General Appearance General appearance: appears started age, fatigue EENT: mucous membranes moist Neck: supple Respiratory: clear Cardiology: no edema Gastrointestinal: no tenderness Integumentary: warm and dry Neurologic: no focal deficit, alert and oriented x3 Musculoskeletal: no deformities Psychiatric: mood/affect appropriate, cooperative - Lab 08/04/19 04:40 08/04/19 04:40 Most recent lab results Calcium 9.5 mg/dl (8.6-10.4) 08/04/19 04:40 Phosphorus 4.2 mg/dL (2.7-4.5) 08/04/19 04:40 Magnesium 2.5 mg/dL (1.6-2.5) 08/04/19 04:40 Assessment and Plan (1) Acute on chronic renal failure Leah Hong is an 84-year-old female with coronary artery disease and peripheral vascular disease with extremely heavy atherosclerotic plaques s/p endarterectomies and grafts on Coumadin anticoagulation, hypertension, hyperlipidemia, hypothyroidism, chronic hypoxic hypercapnic respiratory failure due to chronic obstructive pulmonary disease, chronic kidney disease stage 3 (baseline eGFR 50-60), history of CVA, admitted on 07/30/19 for acute neurologic change. Acute kidney injury on chronic kidney disease stage 3 with initial hyperkalemia and metabolic acidosis, associated with sepsis, present on arrival. There is no recent history of IV contrast administration or NSAID use. Acute fernanda merulonephritis and acute interstitial nephritis considered. Work up: Urinalysis on 07/30/19: Straw, Clear, pH 7.0, SG 1.009, protein 100, occult blood 0.03, leukocyte esterase negative. Urine Sodium on 08/02/19: <20. Urine eosinophil smear on 08/02/19: TNP. Urine random total protein on 08/02/19: 151. Labs on 08/02/19: HBsAg non reactive, MAZIN negative, ANCA screen pending. US Renal on 07/30/19: Multiple renal cysts bilaterally. No hydronephrosis. Renal cortex appears somewhat thinned bilaterally. Renal cortex is echogenic consistent with medical renal disease. US Renal Doppler on 08/02/19: Multiple bilateral renal cysts. Abnormal resistive indices bilaterally. There are two left renal arteries. There is hemodynamically significant stenosis in one of the two left renal arteries. The second is negative. No right renal artery stenosis Progress: Encephalopathy, suspected hypertensive, improved. Hypertensive emergency, suspected renovascular hypertension, improved. Blood pressure: 179/83 Urine output: 625 ml reported in the past 24 hours. Last serum creatinine 2.4. No fluid overload. Recommendations/Plan: No acute hemodialysis need. No urgent renal artery stenosis workup or procedures. Avoid NSAIDs, nephrotoxic medications and IV contrast. Monitor BMP and urine output. LIO/ARB would be needed for hypertension. I prefer to hold it for a little longer. Outpatient nephrology follow up in [address] Chan at discharge. Status: Acute Priority: High Qualifiers: Acute renal failure type: unspecified Chronic kidney disease stage: stage 3 (moderate) Qualified Code(s): N17.9 - Acute kidney failure, unspecified; N18.3 - Chronic kidney disease, stage 3 (moderate) (2) Hypertensive encephalopathy Please see above Status: Suspected Priority: High (3) Hypertensive emergency without congestive heart failure Please see above Status: Suspected Priority: High (4) Metabolic acidosis Please see above Status: Resolved Priority: Medium
[2019-08-05] MEDS ORDERED: predniSONE 20 MG TABLET PO SCH (08:00)
[2019-08-05 08:04] LABS: INR 2.4 (0.9-1.1); Prothrombin Time 26.1 sec (11.9-14.5)
[2019-08-05] MEDS: SPIRONOLACTONE 25 MG TABLET PO SCH (10:39)
[2019-08-05] MEDS: amLODIPine 10 MG TABLET PO SCH (10:41)
[2019-08-05] MEDS: CHLORTHALIDONE 25 MG TABLET PO SCH (10:42)
[2019-08-05] MEDS: METOPROLOL TARTRATE 25 MG TABLET PO SCH (10:43)
[2019-08-05] MEDS: LEVOTHYROXINE 75 MCG TABLET PO SCH (10:44)
[2019-08-05] MEDS: DOCUSATE SODIUM 100 MG CAPSULE PO SCH (10:44)
[2019-08-05] MEDS: hydrALAZINE 10 MG TABLET PO SCH ×2 (10:44→15:02)
[2019-08-05] MEDS: MULTIVIT,THER IRON,CA,FA & MIN 1 TABLET PO SCH (10:44)
[2019-08-05] MEDS: IPRATROPIUM/ALBUTEROL 3 ML AMPUL.NEB NEB PRN ×2 (11:42→13:32)
[2019-08-05 12:30] LABS: ALT/SGPT 22 U/l (0-40); AST/SGOT 15 U/l (0-37); Albumin 3.3 gm/dL (3.2-5.2); Albumin/Globulin Ratio 1.7 (1.0-2.3); Alkaline Phosphatase 77 U/L (39-117); Bilirubin,Total < 0.2 mg/dL (0.0-1.0); Blood Urea Nitrogen 57 mg/dl (8-23); Calcium 9.5 mg/dl (8.6-10.4); Carbon Dioxide 30 mmol/L (22-30); Chloride 104 mmol/L (96-108); Globulin 1.9 gm/dL (2.2-3.7); Glucose 149 mg/dL (70-105)
[2019-08-05 12:33] LABS: Glomerular Filtration Rate 24
[2019-08-05] MEDS ORDERED: WARFARIN 3 MG TABLET PO ONE (14:00)
[2019-08-05] MEDS: methylPREDNISolone SOD SUCC 125 MG/2 ML VIAL IV SCH (14:21)
[2019-08-05] MEDS: DIGOXIN 125 MCG TABLET PO SCH (15:03)
--- NOTE | 2019-08-05 15:35 | Discharge Summary ---
Medical - DS: Prov Patient information: Note initiated : 08/05/19 at 3:33 pm Service Date, if different from initiated Date: [] Patient: Leah Hong 84 y/o F admitted on 07/30/19 for Neuro defecit. Chief Complaint: [] Date of admission: 07/30/19 17:55 Discharge date: 08/05/19 Primary care physician: Raul Orozco Consults: 07/31/19 07:34 Consult to Physician [CONS] Routine Comment: Consulting Provider: Mynor Bergman Reason For Exam: Physician to Consult 08/01/19 13:28 Consult to Physician [CONS] Routine Comment: Consulting Provider: Sha Chan Reason For Exam: Physician to Consult Medical - DS: Meds - Discharge Medications Prescriptions: hydrALAZINE [Apresoline] 25 mg PO TID #90 tab Transmission Status: Pending to [facility] Chlorthalidone [Hygroton] 25 mg PO DAILY #30 tab Transmission Status: Pending to [facility] amLODIPine [Norvasc] 10 mg PO DAILY #30 tab Transmission Status: Pending to [facility] Active and Home Medications: Home Medications ipratropium-albuterol 0.5 mg-3 mg(2.5 mg base)/3 mL nebulization soln 3 ml INHALATION TID 30 Days #270 ml 08/19/15 [Rx Confirmed 07/30/19 Last Taken Unknown] albuterol sulfate 90 mcg/actuation aerosol inhaler 1 puff INHALATION QID #18 g 10/26/15 [Rx Confirmed 07/30/19 Last Taken Unknown] digoxin 125 mcg (0.125 mg) tablet 125 mcg PO QDAY 90 Days #90 tab 07/04/16 [Rx Confirmed 07/30/19 Last Taken Unknown] levothyroxine 75 mcg tablet 75 mcg PO QDAY 90 Days #90 tab 02/20/17 [Rx Confirmed 07/30/19 Last Taken Unknown] warfarin 1 mg tablet See Rx Instructions .ROUTE .COMPLEX #180 tab 06/14/17 [Rx Confirmed 07/30/19 Last Taken Unknown] Bisoprolol Fumarate 2.5 mg PO HS 07/30/19 [History Confirmed 07/30/19 Last Taken Unknown] Diltiazem HCl [Dilt-Xr] 360 mg PO QDAY 07/30/19 [History Confirmed 07/30/19 Last Taken Unknown] Metoprolol Succinate [Kapspargo Sprinkle] 25 mg PO BID 07/30/19 [History Confirmed 07/30/19 Last Taken Unknown] Pravastatin [Pravachol] 40 mg PO HS 07/30/19 [History Confirmed 07/30/19 Last Taken Unknown] Spironolactone [Aldactone] 12.5 mg PO DAILY 07/30/19 [History Confirmed 07/30/19 Last Taken Unknown] Terazosin [Hytrin] 1 mg PO HS 07/30/19 [History Confirmed 07/30/19 Last Taken Unknown] oxyCODONE HCL [Roxicodone] 5 mg PO Q6HP PRN 07/30/19 [History Confirmed 07/30/19 Last Taken Unknown] traMADol HCL [Ultram] 100 mg PO DAILY 07/30/19 [History Confirmed 07/30/19 Last Taken Unknown] Bisacodyl [Dulcolax] 10 mg AL Q2-3DAYS PRN supp.rect 08/05/19 [Rx Last Taken Unknown] Chlorthalidone [Hygroton] 25 mg PO DAILY #30 tab 08/05/19 [Rx Last Taken Unknown] Melatonin [Melatonin 3Mg Tablet] 3 mg PO HSP PRN #30 tab 08/05/19 [Rx Last Taken Unknown] amLODIPine [Norvasc] 10 mg PO DAILY #30 tab 08/05/19 [Rx Last Taken Unknown] hydrALAZINE [Apresoline] 25 mg PO TID #90 tab 08/05/19 [Rx Last Taken Unknown] predniSONE [Prednisone] 40 mg PO QAMCC 5 Days #5 tab 08/05/19 [Rx Last Taken Unknown] Medical - DS: Hosp Hospital Course: Ms. 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 She also noted worsening confusion along with left-sided headache that started abruptly this morning. Symptoms persisted for a few hours and was associated with a fever of 101.8. She denies experiencing associated photophobia. She is hard of hearing. Most of the history was obtained from patient's . Initial work-up was consistent with acute pulmonary edema/chest infiltrates and sepsis with a white count 14.7 and creatinine 2.2. Hospitalist service was consulted in light of severe sepsis/acute renal failure and high probability encephalitis in the setting of fever and mental status change. LP could not performed due to elevated INR. Patient was empirically started on Rocephin/vancomycin/acyclovir given a history of herpes. At the time of my evaluation patient denies associated chest pain, diarrhea, dysuria or bloody stool. She endorses to weight loss. She is very hard of hea ring and is extremely distressed sitting up on bed labored unable to talk in full sentences. 07/31-patient seen in room. Feeling a lot better. Improved white count down to 7000. Potassium 5.4 creatinine 2.2. Improved blood pressure control. Improving hypoxia. Mental status much improved. Family members at bedside. Case discussed with patient's daughter Casimiro and other family members. Continue close monitoring. 08/01-patient clinically improving however worsening white count of 12.7. Hemoglobin 9.3. INR 4. Patient complains of intermittent green and red spots in visual field. CT shows extensive ischemic past microvascular changes throughout the white matter. INR therapeutic. Potassium down from 5.4-5.1. Creatinine up from 2.2->2.6. If deteriorating renal function will consult nephrology. Blood pressure 140s to 160s systolic, start home medications except for ARB. Hydralazine 10 3 times daily. 08/02 -patient clinically feels better however persistent elevated white count of 13.8, creatinine 2.6. Nephrology on board. INR 4.5. Discontinue antibiotics in 24 hours. Nephrology optimizing antihypertensive management. No telemetry events or concerns per staff. Modified barium swallow completed. Or ST continue dysphagia level 6 diet and mildly thick liquids. Continue aspiration precautions. 08/03-white count downtrending. Overall feels a lot better. Blood pressure improved with addition of chlorthalidone/amlodipine per nephrology. Encephalopathy resolved. Denies headache or chest discomfort. Creatinine downtrending now 2.5. Hypoxia resolved now on room air. Pulmonary edema resolved. INR therapeutic. Anticipate discharge in 24 to 48 hours pending optimization of blood pressures and improvement renal failure 08/04-patient mental status improving, nephrology evaluated the patient and recommended outpatient follow-up no need for acute intervention creatinine improving anticipating discharge in next 1 to 2 days, encourage patient to ambulate and take out the Fitzgerald catheter, ordered UA she was having leukocytosis probably due to steroids. Will taper the steroids to p.o. tomorrow 1216-patient mental status improved she is back to baseline nephrology evaluated and recommended outpatient follow-up her creatinine improved to 1.7. She had some minimal leukocytosis probably due to the steroid and she will be discharged on p.o. prednisone for 5 more days. Acute renal failure on CKD Creatinine started trending down 2.4 today Nephrology following recommended outpatient follow-up no need for dialysis Holding ARB and LIO inhibitor Blood pressure improving Acute encephalopathy probably hypertensive and metabolic due to underlying renal failure, COPD exacerbation Initially concern for encephalitis but since she improved antibiotics were stopped Unable to perform LP upon admission due to hypercoagulable state Elevated leukocytosis probably due to steroids COPD exacerbation Continuing prednisone for 5 more days Continue duo nebs Mental status and overall functionality improving Hypercoagulable state due to Coumadin INR remains elevated We will monitor no evidence of any bleeding Dysphagia Diet per speech therapy recommendations Completed modified barium swallow Acute pulmonary edema secondary to hypertensive emergency Acute hypoxic respiratory failure Improved Blood pressure better controlled and needs to follow-up with the primary care and nephrology Need further titration Discharge diagnosis: Acute on chronic renal failure, COPD exacerbation, acute pulmonary edema, a Time spent discussing smoking cessation with patient: more than 10 minutes - Time Spent with Patient Total time spent providing and/or coordinating discharge services: Greater than 30 minutes Medical - DS: Exam - Constitutional Vitals: Vital Signs Temp Pulse Pulse Resp BP BP Pulse Ox 08/05/19 13:47 87 20 08/05/19 12:00 91 H 20 156/80 96 08/05/19 11:50 79 16 08/05/19 11:43 97 08/05/19 07:23 97.9 F 92 H 20 179/83 96 08/05/19 03:55 98.4 F 91 H 18 154/81 94 08/04/19 23:33 98.1 F 85 20 146/78 94 08/04/19 21:47 91 H 20 08/04/19 18:47 99.2 F H 92 H 22 157/74 94 08/04/19 15:46 74 14 95 08/04/19 15:43 98.1 F 89 16 138/62 93 Intake and Output 08/05/19 08/05/19 08/05/19 05:59 13:59 21:59 Intake Total 20 480 Balance 20 480 Intake: Oral 20 480 Other: Meal Breakfast Percent of Meal Consumed 100% Urine Appearance Clear Urine Color Bright Yellow Stool Size Moderate Stool Color Brown Stool Consistency Formed # Voids 1 1 # Bowel Movements 1 - Head Head exam: Present: normal inspection, normocephalic - Eye Eye exam: Present: normal appearance. Absent: conjunctival injection, nystagmus, periorbital swelling, periorbital tenderness - ENT ENT exam: Present: mucous membranes moist, normal exam - Respiratory Respiratory exam: Present: decreased breath sounds, wheezes - Cardiovascular Cardiovascular exam: Present: normal rate and rhythm. Absent: bradycardia - GI/Abdominal GI/Abdominal exam: Present: normal bowel sounds, soft, distended - Neurological Exam Neurological exam: Present: alert, oriented X3. Absent: motor sensory deficit Medical - DS: Data Labs on day of discharge: Labs from last 24 hours 08/05/19 08/05/19 11:18 07:09 PT 26.1 H INR 2.4 H Sodium 144 Potassium 4.4 Chloride 104 Carbon Dioxide 30 Anion Gap 10.0 BUN 57 H Creatinine 1.9 H GFR Calculation 24 Glucose 149 H Calcium 9.5 Total Bilirubin < 0.2 AST 15 ALT 22 Alkaline Phosphatase 77 Total Protein 5.2 L Albumin 3.3 Globulin 1.9 L Albumin/Globulin Ratio 1.7 Medical - DS: A/P - Patient/Caregiver Discharge Instructions Activity: increase activity as tolerated Diet: Low Sodium (2gm) Additional Instructions: Dysphagia LVL 4 with Thick Liquids Prescriptions: hydrALAZINE [Apresoline] 25 mg PO TID #90 tab Transmission Status: Pending to [facility] Chlorthalidone [Hygroton] 25 mg PO DAILY #30 tab Transmission Status: Pending to [facility] amLODIPine [Norvasc] 10 mg PO DAILY #30 tab Transmission Status: Pending to [facility] - Follow up Plan Follow up with: Raul Orozco MD [Primary Care Provider] - 08/07/19 10:30 am Disposition: Home, Self-Care Care Plan Goals: This discharge packet is provided to you to help keep you informed about your care. We want to ensure you get everything you need when you go home. You will also be receiving a call from us in a few days to follow up with you and see how you are doing since your discharge. This gives us a chance to listen to any concerns you maybe experiencing since you were discharged or any additional needs you may have, as well as providing us feedback on your care experience. We strive to always provide excellent care and thank you for your feedback and for choosing [facility]. Prognosis: Serious Rehab Potential: Fair I certify that the patient requires SNF services: No Overall status at discharge: patient is progressing back to baseline Medical - DS: Qual - VTE Deep Vein Thrombosis/Pulmonary Embolism Present on Admission: No
[2019-08-08 09:10] LABS: Myeloperoxidase Antibody <1.0 AI (<1.0)
== END 2019-08-05 18:00 | disposition home or self-care (01) | DRG 871 ==
LOC: ED 12:06 → ICU 17:55 → MEDSUR 08-03 22:42
PROVIDERS: ADMIT Internal Medicine; ATTEND Internal Medicine